=== PATIENT | female | born 1995 | race Caucasian/White ===

== ENCOUNTER → 2019-03-21 | Outpatient (CLI) | payer OTHER ==
[~2019-03-21] MED LIST: ACYC400T PO; AMOX250C PO; AZIT-21 PO; CEFP500T4 PO; CLIN300C3 PO; DOXY-13 PO; ESCT10T PO; FRS325T PO; HYDR-3714 PO; HYDR-707 PO; IBP800T PO; IBUP-1773 PO; LITH600C PO; LORA1TAB PO; METH4TAB PO; NITR100C3 PO; ONDA-42 SL; PRD20T PO; PREN-115 PO; PREN1TAB71 PO; PRM25T PO; SULF-222 PO; SULF1TAB38 PO; TAPE50TA PO; TRZ100T PO; VIVANSE
--- NOTE | 2019-03-21 16:55 | Diagnostic Imaging Report ---
INDICATION: Left breast lump. Findings: Sonographic interrogation of the area of lump in the left breast was performed. This correlates with the 4 o'clock location.There appears to be a fibrous ridge at this location. No discrete mass is seen. No fluid collection is seen. IMPRESSION: BI-RADS category 1. No sonographic abnormality is identified. Dictated by: Dictated on workstation # [id number]
--- NOTE | 2019-03-21 20:39 | Diagnostic Imaging Report ---
INDICATION: Palpable lump in the lateral left breast. COMPARISON: No prior mammograms are available for comparison. EXAMINATION: Unilateral left 2D and 3D diagnostic mammography was performed with CAD. The current study was also evaluated with a Computer Aided Detection (CAD) system. FINDINGS: Scattered fibroglandular densities are identified. No mass or malignant appearing microcalcifications are seen. Left axilla is unremarkable. IMPRESSION: BI-RADS category zero. No suspicious mammographic features are identified. Even so, sonographic interrogation of the area of palpable abnormality is recommended and will be performed today. ACR BI-RADS Category 0: Incomplete. (Needs additional imaging evaluation). Result letter will be mailed to the patient. Note: At least 10% of breast cancer is not imaged by mammography. Dictated by: Dictated on workstation # [id number]
== END ==
LOC: RAD 13:53
PROVIDERS: ATTEND Nurse Practitioner Family
DX: N63.23 Unspecified lump in the left breast, lower outer quadrant (principal)
CPT/HCPCS: 76642

== ENCOUNTER 2020-03-23 13:02 | Emergency (ER) | payer MEDICAID, OTHER ==
[~2020-03-23] VITALS: Ht 155 cm; Wt 100.0 kg
[2020-03-23 13:02] VITALS: BP 108/66
--- NOTE | 2020-03-23 13:30 | NUR ---
Pt to nurses station stating, "I have to get to Trinh Martell, its my kid."
--- NOTE | 2020-03-23 13:34 | ED General ---
General Stated Complaint: COVID SYMPTOMS History of Present Illness Date Seen by Provider: Mar 23, 2020 Time Seen by Provider: 13:10 Initial Comments 24-year-old female presents for multitude of chronic health concerns. Denies suicidal or homicidal thoughts. She does have a history of schizophrenia. She was to see her mental health provider yesterday but didn't feel up to it. She is trying to establish care with a primary care provider in [place]. She reports 2 year history of intermittent nausea, feeling "sick internally" but nonspecific complaints. Denies SOA, Chest Pain, Headache or abdominal pain. She occasionally has leg pain, denies today. Her main complaint is fatigue, circles under eyes, no appetite but then binge eats, lack of motivation and concern that she is "terminally ill and hair got really thin 2 years ago" Timing/Duration: Changing Over Time Associated Systoms: Malaise Allergies and Home Medications Allergies Coded Allergies: Penicillins (Unverified Allergy, Unknown, 09/11/13) ciprofloxacin (Unverified Allergy, Unknown, 07/18/14) ciprofloxacin HCl (Unverified Allergy, Unknown, 07/18/14) Home Medications Acyclovir 400 Mg Tablet, 400 MG PO BID Prescribed by: OLIVIA STAFFORD on 05/05/162222 Acyclovir 400 Mg Tablet, 800 MG PO BID Prescribed by: OLIVIA STAFFORD on 05/05/162222 Nitrofurantoin/Nitrofuran Mac 100 Mg Capsule, 100 MG PO BID Prescribed by: MARCUS FARFAN on 07/18/142220 Vit/Fe Fumarate/Fa 1 Each Tablet, 1 EACH PO DAILY, (Reported) Patient Home Medication List Home Medication List Reviewed: Yes Review of Systems Review of Systems Constitutional: no symptoms reported, see HPI Psychiatric/Neurological: See HPI, Emotional Problems All Other Systems Reviewed Negative Unless Noted: Yes Past Mxmaaqf-Tdgwmq-Mdinxo Hx Past Med/Social Hx: Reviewed Nursing Past Med/Soc Hx Patient Social History Type Used: Cigarettes Recent Hopitalizations: No Immunizations Up To Date Tetanus Booster (TDap): Unknown Seasonal Allergies Seasonal Allergies: No Past Medical History Appendectomy, Section, Gallbladder Reproductive Disorders: No Gastroesophageal Reflux, Hiatal Hernia Anxiety, Depression Adverse Reaction/Blood Tranf: No Family Medical History History of drug abuse 03 MOTHER No Pertinent Family Hx Physical Exam Vital Signs Capillary Refill : Height, Weight, BMI Height: 5'1" Weight: 150lbs. oz. 68.031895gf; 24.56 BMI Method:Stated General Appearance: No Apparent Distress, WD/WN; No Anxious Eyes: Bilateral Eye Normal Inspection, Bilateral Eye PERRL, Bilateral Eye EOMI HEENT: PERRL/EOMI, TMs Normal, Normal ENT Inspection, Pharynx Normal Neck: Full Range of Motion, Normal Inspection, Non Tender, Supple Respiratory: Chest Non Tender, Lungs Clear, Normal Breath Sounds Cardiovascular: Regular Rate, Rhythm, No Edema, No Murmur, Normal Peripheral Pulses Gastrointestinal: Normal Bowel Sounds, Non Tender, Soft Back: Normal Inspection, No CVA Tenderness, No Vertebral Tenderness Extremity: Normal Capillary Refill, Normal Inspection, Normal Range of Motion Neurologic/Psychiatric: Alert, Oriented x3, No Motor/Sensory Deficits, Normal 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 Based on her complaints at this time it was discussed her best course of action is to establish care with Dr. Lau in [place] as her problems are more chronic in nature. I do believe she has depression, which is affecting her physical health. She denies halluci nations and feels her schizophrenia is well-controlled with medication and seeing her mental health provider. She agreed with this and asked for quick discharge, as she needs to return home because her child was calling her for something urgent. Discharge instructions and return precautions reviewed with the patient. All questions answered. Departure Impression Primary Impression: Depressed Qualified Codes: F32.9 - Major depressive disorder, single episode, unspecified Additional Impression: Schizophrenia Qualified Codes: F20.9 - Schizophrenia, unspecified Disposition: 01 HOME, SELF-CARE Condition: Improved Departure-Patient Inst. Decision time for Depature: 13:20 Referrals: NO,LOCAL PHYSICIAN (PCP/Family) Primary Care Physician Patient Instructions: Depression, Adult (DC) Add. Discharge Instructions: Call [facility] for follow up with [facility]. Schedule appt with Dr. Lau, for medical evaluation. Return to Emergency Dept for new, urgent health care needs. TINY GUPTA Mar 23, 2020 13:34
== END 2020-03-23 13:37 | disposition home or self-care (01) ==
LOC: EDUNIT# 13:02 → ER 13:03
DX: F32.9 Major depressive disorder, single episode, unspecified (principal); F20.9 Schizophrenia, unspecified; Z88.0 Allergy status to penicillin; Z88.1 Allergy status to other antibiotic agents
CPT/HCPCS: 99281

== ENCOUNTER 2022-02-23 13:14 | Emergency (ER) | payer MEDICAID, OTHER ==
[~2022-02-23] VITALS: Ht 154 cm; Wt 76.6 kg
[~2022-02-23 13:14] MED LIST changes: -ACYC400T PO; +ACYC400T21 PO
[2022-02-23 13:37] VITALS: BP 131/101
[2022-02-23] MEDS ORDERED: RISP1TAB94 PO (13:43)
--- NOTE | 2022-02-23 13:44 | ED Psychosocial ---
General Chief Complaint: General Problems/Pain Stated Complaint: AUDITORY HALLUCINATIONS Source: patient Exam Limitations: no limitations History of Present Illness Date Seen by Provider: Feb 23, 2022 Time Seen by Provider: 13:19 Initial Comments 26-year-old female with past medical history of schizophrenia coming in due to auditory hallucinations. They are gone for many years, she has been out of her meds for roughly 3 weeks. She called her PCP to get a refill, and they wanted her to be seen. She was supposed to be seen yesterday, but she was unable to get a ride. She is typically on risperidone and Ativan as needed. She is had neither of these she says once again for 3 weeks. Denies any current hallucin ations, no thoughts to hurt herself or hurt anyone else. She is otherwise denying any other physical complaints Allergies and Home Medications Allergies Coded Allergies: Penicillins (Unverified Allergy, Unknown, 09/11/13) ciprofloxacin (Unverified Allergy, Unknown, 07/18/14) ciprofloxacin HCl (Unverified Allergy, Unknown, 07/18/14) Patient Home Medication List Home Medication List Reviewed: Yes Acyclovir (Acyclovir) 400 Mg Tablet, 400 MG PO BID Prescribed by: OLIVIA STAFFORD on 05/05/162222 Acyclovir (Acyclovir) 400 Mg Tablet, 800 MG PO BID Prescribed by: OLIVIA STAFFORD on 05/05/162222 Nitrofurantoin/Nitrofuran Mac (Macrobid Capsule) 100 Mg Capsule, 100 MG PO BID Prescribed by: MARCUS FARFAN on 07/18/142220 Vit/Fe Fumarate/Fa ( Vitamin Tablet) 1 Each Tablet, 1 EACH PO DAILY, (Reported) Entered as Reported by: MARCUS FARFAN on 07/18/142219 Review of Systems Constitutional: No fever EENTM: No blurred vision Respiratory: no symptoms reported Cardiovascular: no symptoms reported Gastrointestinal: no symptoms reported Genitourinary: no symptoms reported Musculoskeletal: no symptoms reported Skin: no symptoms reported Psychiatric/Neurological: Anxiety; Denies Headache, Denies Seizure All Other Systems Reviewed Negative Unless Noted: Yes Past Owskayf-Lmpxdo-Fqocqw Hx Patient Social History Tobacco Use?: Yes Tobacco type used: Cigarettes Use of E-Cig and/or Vaping dev: No Substance use?: Yes Substance type: Methamphetamine Alcohol Use?: Yes Immunizations Up To Date Tetanus Booster (TDap): Unknown Seasonal Allergies Seasonal Allergies: No Past Medical History Surgeries: Yes Appendectomy, Section, Gallbladder Respiratory: No Cardiac: No Neurological: No Reproductive Disorders: No Gastrointestinal: Yes Gastroesophageal Reflux, Hiatal Hernia Musculoskeletal: No Endocrine: No Cancer: No Psychosocial: Yes Anxiety, Depression Integumentary: No Blood Disorders: No Adverse Reaction/Blood Tranf: No Family Medical History History of drug abuse 03 MOTHER No Pertinent Family Hx Physical Exam Capillary Refill : Height, Weight, BMI Height: 5'1" Weight: 150lbs. oz. 68.204619ll; 41.00 BMI Method:Stated General Appearance: WD/WN, no apparent distress HEENT: PERRL/EOMI, normal ENT inspection, pharynx normal Neck: non-tender, full range of motion, supple, normal inspection Respiratory: chest non-tender, lungs clear, normal breath sounds, no respiratory distress, no accessory muscle use Cardiovascular: regular rate, rhythm, no edema, no murmur Gastrointestinal: normal bowel sounds, non tender, soft; No distended, No guarding, No rebound Extremities: normal range of motion, non-tender, normal inspection, no pedal edema, no calf tenderness, normal capillary refill Neurologic/Psychiatric: no motor/sensory deficits, alert, other (flat, no current hallucinations, no thoughts of SI/HI) Skin: normal color, warm/dry Lymphatic: no adenopathy Progress/Results/Core Measures Progress Progress Note : Progress Note 26-year-old female with above history coming in wanting refill for her psych meds. ABCs were intact and vitals were stable on presentation. Physical exam reassuring with no focal abnormalities. She says the hallucinations often happen later on in the day, but she is never having any thoughts to hurt herself or hurt anyone else. I discussed that I would write a refill for the risperidone as a bridge to get her to her regular appointment, but it would not be for very many days. Said I would not write for controlled substances such as Ativan, and she would need to follow-up for that. She has not had a dose in over 3 weeks and she is not at risk for withdrawal. I believe she is stable for discharge with outpatient follow-up. She was sent home with strict return precautions Departure Impression Primary Impression: Schizophrenia Qualified Codes: F20.3 - Undifferentiated schizophrenia Disposition: 01 HOME, SELF-CARE Condition: Stable Departure-Patient Inst. Decision time for Depature: 13:42 Referrals: ROBYN DANIEL MD (PCP) Primary Care Physician Patient Instructions: Schizophrenia (DC) Add. Discharge Instructions: The medicines are not for a long prescription, and you will need to follow-up with your regular doctor to get a regular prescription. Scripts Risperidone (Risperdal) 1 Mg Tablet 1 MG PO BID for 30 Days, #60 TAB Prov: ALLIE GRANDE MD 02/23/22 Work/School Note: Work Release Form Date Seen in the Emergency Department: Feb 23, 2022 Return to Work: Feb 24, 2022 Restrictions: No Restrictions ALLIE GRANDE MD Feb 23, 2022 13:43
== END 2022-02-23 13:50 | disposition home or self-care (01) ==
LOC: EDUNIT# 13:14 → ER FS 13:19
DX: F20.9 Schizophrenia, unspecified (principal); F17.210 Nicotine dependence, cigarettes, uncomplicated; Z79.899 Other long term (current) drug therapy
CPT/HCPCS: 99281

== ENCOUNTER 2022-03-21 11:31 | Emergency (ER) | payer SELFPAY ==
[~2022-03-21] VITALS: Ht 154 cm; Wt 74.0 kg
[~2022-03-21 11:31] MED LIST changes: +RISP1TAB94 PO
[2022-03-21 12:00] VITALS: BP 111/70
[2022-03-21] MEDS ORDERED: ACHD5005 PO ×2 (12:10→12:17)
--- NOTE | 2022-03-21 12:11 | ED EENT ---
History of Present Illness General Chief Complaint: Dental Problems/Pain Stated Complaint: ABCESS TOOTH Source: patient Exam Limitations: no limitations History of Present Illness Date Seen by Provider: Mar 21, 2022 Time Seen by Provider: 12:07 Initial Comments Patient is a 26-year-old female who presents ED with right upper dental pain. Dental pain over the past 4 days. She states she had intermittent pain for 2 weeks prior. Pain became worse went to clinic at [facility] and was prescribed clindamycin yesterday. Has been taken Tylenol and ibuprofen without much improvement the pain. She scheduled follow-up with dentist on . Denies any facial swelling, redness, fever, chills, headache, dizziness, nausea vomiting. She denies of any trauma. History of similar pain in the past Allergies and Home Medications Allergies Coded Allergies: Penicillins (Unverified Allergy, Unknown, 09/11/13) ciprofloxacin (Unverified Allergy, Unknown, 07/18/14) ciprofloxacin HCl (Unverified Allergy, Unknown, 07/18/14) Patient Home Medication List Home Medication List Reviewed: Yes Acyclovir (Acyclovir) 400 Mg Tablet, 400 MG PO BID Prescribed by: OLIVIA STAFFORD on 05/05/162222 Acyclovir (Acyclovir) 400 Mg Tablet, 800 MG PO BID Prescribed by: OLIVIA STAFFORD on 05/05/162222 Hydrocodone/Acetaminophen (Hydrocodone-Acetamin 5-325 mg) 5 Mg-325 Mg Tablet, 1 TAB PO Q4H PRN for PAIN-MODERATE (5-7) Prescribed by: OMID FLORES on 03/21/22 1210 Nitrofurantoin/Nitrofuran Mac (Macrobid Capsule) 100 Mg Capsule, 100 MG PO BID Prescribed by: MARCUS FARFAN on 07/18/14 222 Vit/Fe Fumarate/Fa ( Vitamin Tablet) 1 Each Tablet, 1 EACH PO DAILY, (Reported) Entered as Reported by: MARCUS FARFAN on 07/18/142219 Risperidone (Risperdal) 1 Mg Tablet, 1 MG PO BID Prescribed by: ALLIE GRANDE on 02/23/22 1343 Review of Systems Review of Systems Constitutional: No chills, No diaphoresis, No malaise, No weakness Eyes: Denies Blurred Vision, Denies Drainage Ears: Denies Dizziness, Denies Pain Nose: denies no symptoms reported, denies congestion, denies epistaxis Mouth: denies clots, denies loose teeth; pain; denies swelling, denies bloody discharge Throat: denies swelling, denies discharge Respiratory: No cough, No dyspnea on exertion Cardiovascular: No chest pain Gastrointestinal: No abdominal pain, No diarrhea, No nausea, No vomiting Musculoskeletal: No back pain, No joint pain, No joint swelling, No muscle pain, No muscle stiffness All Other Systems Reviewed Negative Unless Noted: Yes Past Uxloyjq-Csapru-Efqbjl Hx Immunizations Up To Date Tetanus Booster (TDap): Unknown Seasonal Allergies Seasonal Allergies: No Past Medical History Surgeries: Yes Appendectomy, Section, Gallbladder Respiratory: No Cardiac: No Neurological: No Reproductive Disorders: No Gastrointestinal: Yes Gastroesophageal Reflux, Hiatal Hernia Musculoskeletal: No Endocrine: No Cancer: No Psychosocial: Yes Anxiety, Depression Integumentary: No Blood Disorders: No Adverse Reaction/Blood Tranf: No Family Medical History History of drug abuse 03 MOTHER No Pertinent Family Hx Physical Exam Vital Signs Vital Signs - First Documented 03/21/22 12:00 Temp 36.3 Pulse 88 Resp 16 B/P (MAP) 111/70 (84) Pulse Ox 97 O2 Delivery Room Air Height, Weight, BMI Height: 5'1" Weight: 150lbs. oz. 68.816658wf; 32.00 BMI Method:Stated General Appearance: WD/WN, no apparent distress Eyes: bilateral eye normal inspection, bilateral eye PERRL, bilateral eye EOMI Ears: bilateral ear auricle normal, bilateral ear canal normal, bilateral ear TM normal Nose: normal inspection, active bleeding Mouth/Throat: other (Decay noted of the left first molar. 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 Gum swelling erythema. Refused dental block. Started clindamycin yesterday and states it has helped some. She is allergic to penicillins. Recommend continue clindamycin. No facial swelling redness. Vital signs stable. Patient Was given a few days worth of pain medi cation. Continue with ibuprofen at home. She is scheduled follow-up with dentist on . Return precaution were discussed with patient. Impression Primary Impression: Pain, dental Disposition: HOME, SELF-CARE Condition: Stable Departure-Patient Inst. Decision time for Depature: 12:09 Referrals: SELF,ROBYN SAHU (PCP/Family) Primary Care Physician Patient Instructions: Dental Pain Scripts Hydrocodone/Acetaminophen (Hydrocodone-Acetamin 5-325 mg) 5 Mg-325 Mg Tablet 1 TAB PO Q4H PRN for PAIN-MODERATE (5-7), #4 TAB Prov: ALLIE VALENTIN 03/21/22 ALLIE VALENTIN Mar 21, 2022 12:11
== END 2022-03-21 12:15 | disposition home or self-care (01) ==
LOC: EDUNIT# 11:31 → ER 11:33
DX: K08.89 Other specified disorders of teeth and supporting structures (principal)
CPT/HCPCS: 99282

== ENCOUNTER 2022-05-27 12:45 | Emergency (ER) | payer SELFPAY ==
[~2022-05-27] VITALS: Ht 154 cm; Wt 77.0 kg
[~2022-05-27 12:45] MED LIST changes: +ACHD5005 PO
[2022-05-27 12:55] VITALS: BP 119/84
--- NOTE | 2022-05-27 13:04 | ED EENT ---
History of Present Illness General Chief Complaint: Dental Problems/Pain Stated Complaint: DENTAL PAIN History of Present Illness Date Seen by Provider: May 27, 2022 Time Seen by Provider: 13:04 Initial Comments Patient reports that she has left upper dental pain for the past several days. Has been taking over the counter medications at home with mild improvement of symptoms. Has an appointment scheduled next week with dentist. Has been on Clindamycin for the past 3-4 days. Denies fever or drainage from the area. Denies difficulty swallowing or chewing. Timing/Duration: gradual Severity: moderate Location: dental Prearrival Treatment: over the counter meds, prescription meds Associated Symptoms: facial pain/swelling; No poor fluid intake, No poor solids intake; tooth pain Allergies and Home Medications Allergies Coded Allergies: Fish Containing Products (Verified Allergy, Unknown, 05/27/22) Penicillins (Unverified Allergy, Unknown, 09/11/13) ciprofloxacin (Unverified Allergy, Unknown, 07/18/14) ciprofloxacin HCl (Unverified Allergy, Unknown, 07/18/14) Patient Home Medication List Home Medication List Reviewed: Yes Acyclovir (Acyclovir) 400 Mg Tablet, 400 MG PO BID Prescribed by: OLIVIA STAFFORD on 05/05/162222 Acyclovir (Acyclovir) 400 Mg Tablet, 800 MG PO BID Prescribed by: OLIVIA STAFFORD on 05/05/162222 Hydrocodone/Acetaminophen (Hydrocodone-Acetamin 5-325 mg) 5 Mg-325 Mg Tablet, 1 TAB PO Q4H PRN for PAIN-MODERATE (5-7) Prescribed by: OMID FLORES on 03/21/22 1218 Nitrofurantoin/Nitrofuran Mac (Macrobid Capsule) 100 Mg Capsule, 100 MG PO BID Prescribed by: MARCUS FARFAN on 07/18/14 222 Vit/Fe Fumarate/Fa ( Vitamin Tablet) 1 Each Tablet, 1 EACH PO DAILY, (Reported) Entered as Reported by: MARCUS FARFAN on 07/18/142219 Risperidone (Risperdal) 1 Mg Tablet, 1 MG PO BID Prescribed by: ALLIE GRANDE on 02/23/22 1343 Review of Systems Review of Systems Constitutional: No chills, No dizziness, No fever Eyes: Denies Blurred Vision, Denies Pain Ears: Denies Pain Mouth: pain, swelling Throat: denies pain, denies swelling, denies neck stiffness, denies hoarse, denies muffled Respiratory: No cough, No short of breath Cardiovascular: No chest pain, No palpitations Gastrointestinal: No diarrhea, No nausea, No vomiting Skin: No pruritus, No rash Neurological: Denies Headache, Denies Numbness, Denies Tingling All Other Systems Reviewed Negative Unless Noted: Yes Past Ztuwktc-Mrqvwo-Lzcpqk Hx Immunizations Up To Date Tetanus Booster (TDap): Unknown First/Initial COVID19 Vaccinat: UNLNOWN DATE Seasonal Allergies Seasonal Allergies: No Past Medical History Surgeries: Yes Appendectomy, Section, Gallbladder Respiratory: No Cardiac: No Neurological: No Reproductive Disorders: No Gastrointestinal: Yes Gastroesophageal Reflux, Hiatal Hernia Musculoskeletal: No Endocrine: No Cancer: No Psychosocial: Yes Anxiety, Depression Integumentary: No Blood Disorders: No Adverse Reaction/Blood Tranf: No Family Medical History Reviewed Nursing Family Hx History of drug abuse 03 MOTHER No Pertinent Family Hx Physical Exam Vital Signs Vital Signs - First Documented 05/27/22 12:55 Temp 36.3 Pulse 92 Resp 16 B/P (MAP) 119/84 (96) Pulse Ox 94 O2 Delivery Room Air Height, Weight, BMI Height: 5'1" Weight: 150lbs. oz. 68.219328de; 31.00 BMI Method:Stated General Appearance: WD/WN, no apparent distress Eyes: bilateral eye normal inspection Mouth/Throat: pharynx normal, dental tenderness (left upper molars); No mandibular swelling; maxillary swelling (mild left sided maxillary facial swelling); No pharynx swelling, No pharynx tenderness, No tongue swollen, No trismus, No uvula swelling, No voice changes Neck: non-tender, full range of motion, supple, normal inspection Cardiovascular: regular rate, rhythm Respiratory: chest non-tender, lungs clear, normal breath sounds, no respira tory distress, no accessory muscle use Gastrointestinal: normal bowel sounds, non tender Neurologic/Psychiatric: alert, normal mood/affect, oriented x 3 Skin: normal color, warm/dry Progress/Results/Core Measures Results/Orders My Orders Orders - DAVINA RAMOS APRN Ketorolac Injection (Toradol Injection) (05/27/22 13:15) Departure Impression Primary Impression: Dental abscess Disposition: 01 HOME, SELF-CARE Condition: Stable Departure-Patient Inst. Decision time for Depature: 13:20 Referrals: SELF,ROBYN SAHU (PCP/Family) Primary Care Physician Patient Instructions: Dental Pain (DC) Add. Discharge Instructions: 1. Finish antibiotics as previously prescribed. 2. Follow up with PCP as needed. 3. Alternate Tylenol/Ibuprofen as needed for pain. 4. Follow up with Dentist as already planned next week. 5. Return here if worse or concerns. All discharge instructions reviewed with patient and/or family. Voiced understanding. DAVINA RAMOS APRN May 27, 2022 13:04
[2022-05-27] MEDS ORDERED: KETOROLAC 60 MG/2 ML VIAL IM ONE (13:15)
== END 2022-05-27 13:22 | disposition home or self-care (01) ==
LOC: EDUNIT# 12:45 → ER 12:47
DX: K04.7 Periapical abscess without sinus (principal)
CPT/HCPCS: 99284

== ENCOUNTER 2022-08-10 14:56 | Emergency (ER) | payer SELFPAY ==
[~2022-08-10] VITALS: Ht 157 cm; Wt 72.5 kg
--- NOTE | 2022-08-10 15:09 | ED Psychosocial ---
General Chief Complaint: Psych/Social Disorder Stated Complaint: PSYCH Source: EMS, other (Mental Health) Exam Limitations: clinical condition (ZORAIDA COREY MD) History of Present Illness Date Seen by Provider: Aug 10, 2022 Time Seen by Provider: 15:00 Initial Comments Patient is a 26-year-old female who presents to the emergency room by EMS with chief complaint of exacerbation of's psychiatric illness. Mental health screener is with the patient. She does get her care through [facility]. She is on an twice psychotic medications. Mental health screen her 48 hours ago, at that time she did get a shot of her Depo Invega. They did not believe that she warranted inpatient hospitalization on Sunday but apparently over the last 48 hours she has decompensated. She was at a local fast food restaurant "acting psychotic" she was rolling around in dog feces, screaming, hitting herself, punching herself in the left jaw, pulling at her own hair. She does have a history of methamphetamine abuse. She has recently been in [place] [facility]. She was clean reportedly during that time. Due to her acutely psychotic, irrational and aggressive behavior EMS called for medical control for IM ketamine. She was given 250 mg of IM ketamine prior to arrival. She was awake, not really answering questions, obviously under the influence of the ketamine, calm and sedate. Stable vital signs. At the time of presentation not really able to participate in the interview. I spoke with the mental health screener Jessenia and she stated that she was going to place her on an involuntary hold. She is hopeful that once the patient recovers from the ketamine she may want to go voluntarily. No reported suicidal or homicidal ideation to the screener earlier in the week. Screener is not aware of any recent illnesses. She is quite familiar with her. Patient is unable to participate in the HPI, past medical family social history and review of systems due to her current medical state on ketamine. Timing/Duration: week, getting worse Severity: severe Associated Symptoms: other (psychosis) (ZORAIDA COREY MD) Allergies and Home Medications Allergies Coded Allergies: Fish Containing Products (Verified Allergy, Unknown, 05/27/22) Penicillins (Unverified Allergy, Unknown, 09/11/13) ciprofloxacin (Unverified Allergy, Unknown, 07/18/14) ciprofloxacin HCl (Unverified Allergy, Unknown, 07/18/14) Patient Home Medication List Home Medication List Reviewed: Yes (ZORAIDA COREY MD) Acyclovir (Acyclovir) 400 Mg Tablet, 400 MG PO BID Prescribed by: OLIVIA STAFFORD on 05/05/162222 Acyclovir (Acyclovir) 400 Mg Tablet, 800 MG PO BID Prescribed by: OLIVIA STAFFORD on 05/05/162222 Hydrocodone/Acetaminophen (Hydrocodone-Acetamin 5-325 mg) 5 Mg-325 Mg Tablet, 1 TAB PO Q4H PRN for PAIN-MODERATE (5-7) Prescribed by: OMID FLORES on 03/21/22 1218 Nitrofurantoin/Nitrofuran Mac (Macrobid Capsule) 100 Mg Capsule, 100 MG PO BID Prescribed by: MARCUS FARFAN on 07/18/142220 Vit/Fe Fumarate/Fa ( Vitamin Tablet) 1 Each Tablet, 1 EACH PO DAILY, (Reported) Entered as Reported by: MARCUS FARFAN on 07/18/142219 Risperidone (Risperdal) 1 Mg Tablet, 1 MG PO BID Prescribed by: ALLIE GRANDE on 02/23/22 1343 Review of Systems Constitutional: see HPI unable to get an HPI or ROS from patient due to sedated state with Ketamine [employer]PER[employer] (ZORAIDA COREY MD) Past Bkinrrc-Lwvbed-Ivmwzn Hx Immunizations Up To Date Tetanus Booster (TDap): Unknown First/Initial COVID19 Vaccinat: UNLNOWN DATE (ZORAIDA COREY MD) Seasonal Allergies Seasonal Allergies: No (ZORAIDA COREY MD) Past Medical History Surgeries: Yes Appendectomy, Section, Gallbladder Respiratory: No Cardiac: No Neurological: No Reproductive Disorders: No Gastrointestinal: Yes Gastroesophageal Reflux, Hiatal Hernia Musculoskeletal: No Endocrine: No Cancer: No Psychosocial: Yes Anxiety, Depression Integumentary: No Blood Disorders: No Adverse Reaction/Blood Tranf: No (ZORAIDA COREY MD) Family Medical History History of drug abuse 03 MOTHER No Pertinent Family Hx (ZORAIDA COREY MD) Physical Exam Vital Signs - First Documented 08/10/22 08/10/22 15:02 20:21 Temp 35.8 Pulse 94 Resp 16 B/P (MAP) 131/64 (86) Pulse Ox 95 O2 Delivery Room Air (ALANA BRINK MD) Capillary Refill : (ZORAIDA COREY MD) Height, Weight, BMI Height: 5'1" Weight: 150lbs. oz. [id number]; 32.00 BMI Method:Stated General Appearance: WD/WN, no apparent distress HEENT: other (rotatory nustagmus) Neck: normal inspection Respiratory: lungs clear, normal breath sounds, no respiratory distress, no accessory muscle use Cardiovascular: regular rate, rhythm Gastrointestinal: soft Extremities: normal range of motion, normal inspection Neurologic/Psychiatric: alert Thoughts/Hallucinations: other (Patient currently under the influence of Ketamine; no complaints; not really following commands; calm and cooperative) Skin: normal color, warm/dry, other (filthy skin and clothing - covered in dog feces) (ZORAIDA COREY MD) Progress/Results/Core Measures Results/Orders Lab Results Laboratory Tests Test 08/10/22 15:06 08/10/22 15:57 08/10/22 17:21 Range/Units White Blood Count 9.1 4.3-11.0 10^3/uL Red Blood Count 4.44 3.80-5.11 10^6/uL Hemoglobin 13.2 11.5-16.0 g/dL Hematocrit 39 35-52 % Mean Corpuscular Volume 88 80-99 fL Mean Corpuscular Hemoglobin 30 25-34 pg Mean Corpuscular Hemoglobin Concent 34 32-36 g/dL Red Cell Distribution Width 13.2 10.0-14.5 % Platelet Count 275 130-400 10^3/uL Mean Platelet Volume 10.1 9.0-12.2 fL Immature Granulocyte % (Auto) 0 % Neutrophils (%) (Auto) 67 42-75 % Lymphocytes (%) (Auto) 27 12-44 % Monocytes (%) (Auto) 6 0-12 % Eosinophils (%) (Auto) 0 0-10 % Basophils (%) (Auto) 0 0-10 % Neutrophils # (Auto) 6.0 1.8-7.8 10^3/uL Lymphocytes # (Auto) 2.4 1.0-4.0 10^3/uL Monocytes # (Auto) 0.6 0.0-1.0 10^3/uL Eosinophils # (Auto) 0.0 0.0-0.3 10^3/uL Basophils # (Auto) 0.0 0.0-0.1 10^3/uL Immature Granulocyte # (Auto) 0.0 0.0-0.1 10^3/uL Sodium Level 138 135-145 MMOL/L Potassium Level 3.2 L 3.6-5.0 MMOL/L Chloride Level 105 98-107 MMOL/L Carbon Dioxide Level 22 21-32 MMOL/L Anion Gap 11 5-14 MMOL/L Blood Urea Nitrogen 14 7-18 MG/DL Creatinine 0.79 0.60-1.30 MG/DL Estimat Glomerular Filtration Rate 105 BUN/Creatinine Ratio 18 Glucose Level 83 70-105 MG/DL Calcium Level 9.8 8.5-10.1 MG/DL Corrected Calcium 9.6 8.5-10.1 MG/DL Total Bilirubin 1.1 H 0.1-1.0 MG/DL Aspartate Amino Transf (AST/SGOT) 28 5-34 U/L Alanine Aminotransferase (ALT/SGPT) 54 0-55 U/L Alkaline Phosphatase 76 40-136 U/L Total Protein 7.5 6.4-8.2 GM/DL Albumin 4.3 3.2-4.5 GM/DL Serum Test, Qualitative NEGATIVE NEGATIVE Salicylates Level < 5.0 L 5.0-20.0 MG/DL Acetaminophen Level < 10 L 10-30 UG/ML Serum Alcohol < 10 <10 MG/DL Influenza Type A (RT-PCR) Not Detected Not Detecte Influenza Type B (RT-PCR) Not Detected Not Detecte SARS-CoV-2 RNA (RT-PCR) Not Detected Not Detecte Urine Opiates Screen NEGATIVE NEGATIVE Urine Oxycodone Screen NEGATIVE NEGATIVE Urine Methadone Screen NEGATIVE NEGATIVE Urine Propoxyphene Screen NEGATIVE NEGATIVE Urine Barbiturates Screen NEGATIVE NEGATIVE Ur Tricyclic Antidepressants Screen NEGATIVE NEGATIVE Urine Phencyclidine Screen NEGATIVE NEGATIVE Urine Amphetamines Screen POSITIVE H NEGATIVE Urine Methamphetamines Screen POSITIVE H NEGATIVE Urine Benzodiazepines Screen POSITIVE H NEGATIVE Urine Cocaine Screen NEGATIVE NEGATIVE Urine Cannabinoids Screen NEGATIVE NEGATIVE (ALANA BRINK MD) My Orders Orders - ALANA BRINK MD Potassium Chloride (Tablet) (Klor Con Ta (08/10/22 18:15) General/Regular (08/10/22 Dinner) Olanzapine Orally Dissolve Tab (Zyprexa (08/10/22 21:15) (ALANA BRINK MD) Medications Given in ED Current Medications Medications Dose Ordered Sig/Rohan Route Start Time Stop Time Status Last Admin Dose Admin Potassium Chloride 20 meq ONCE ONCE PO 08/10/22 18:15 08/10/22 18:24 DC 08/10/22 18:43 20 MEQ (ALANA BRINK MD) Vital Signs/I&O 08/10/22 08/10/22 15:02 20:21 Temp 35.8 Pulse 94 90 Resp 16 16 B/P (MAP) 131/64 (86) 114/61 (78) Pulse Ox 95 96 O2 Delivery Room Air (ALANA BRINK MD) Progress Progress Note #1: Time: 15:56 Progress Note Resting comfortably; Progress Note #2: Time: 14:55 Progress Note 08/11/22 1456 Patient had paperwork completed for involuntary hold by [facility]. Jessenia Livnigston came back out today to reassess the patient and states that she is "much clearer" than she has been. She is communicating well with Jessenia and and does not seem to be a threat to herself or others. Jessenia is going to talk to Ruthy's family and see if they can keep an eye on her and help to keep her safe. after talking to them she will decide what course of action to take. 1508 Jessenia Livingston came back out to see her and possibly start the paperwork for an out patient "safety plan". Ruthy is now talking to herself and acting bizarely. Won't participate in the interview or talk to Jessenia. Hallucinating and responding to internal stimuli. She is laying in the bed with her head covered (whereas she was just up 30m to 45 min ago talking "normally" and asking for a sprite). Progress Note #3: Time: 15:55 Progress Note HOld will stay in place. Patient is going to [facility] - accepted by Dr Dyer. Nursing report given. Patient to be transported by [facility] (ZORAIDA COREY MD) Progress Note #1: Time: 21:32 Progress Note I assumed care of this patient from Dr. Troy at shift change. She had been resting quietly and compliant until recently. She had an outburst of belligerent language and some nonsensical speech. Zyprexa was ordered. We are awaiting placement from [facility]. Progress Note #2: Time: 22:51 Progress Note Patient refused Zyprexa. She did calm down and has not had further outbursts. She is currently resting quietly and cooperatively. (ALANA BRINK MD) Initial ECG Impression Date: Aug 10, 2022 Initial ECG Impression Time: 15:57 Initial ECG Rate: 90 Initial ECG Rhythm: Normal Sinus Initial ECG Intervals: Normal Initial ECG Impression: Normal Comment Normal sinus rhythm with no ST elevation or depression. No abnormal intervals or axis deviation. (ALANA BRINK MD) Departure Impression Primary Impression: Psychosis Qualified Codes: F29 - Unspecified psychosis not due to a substance or known physiological condition Additional Impression: Methamphetamine abuse Disposition: 65 XFER TO PSYCH HOSP/UNIT Condition: Stable Transfer Transfer Reason: Exceeds level of care Time Spoke to Accepting Phy: 12:45 Transfer Progress Notes acceptance from [facility] obtained by Kerwin Chauhan RN from [facility]; Dr Dyer Transfer Facility: [facility] Method of Transfer: Law Enforcement (ZORAIDA COREY MD) Departure-Patient Inst. Referrals: ROBYN DANIEL MD (PCP/Family) Primary Care Physician Add. Discharge Instructions: ZORAIDA COREY MD Aug 10, 2022 15:09 ALANA BRINK MD Aug 10, 2022 21:34
[2022-08-10 16:13] LABS: BASOPHILS % (AUTO) 0 % (0-10); CHLORIDE 105 MMOL/L (98-107); EOSINOPHILS % (AUTO) 0 % (0-10); HEMATOCRIT 39 % (35-52); HEMOGLOBIN 13.2 g/dL (11.5-16.0); LYMPHOCYTES # (AUTO) 2.4 10^3/uL (1.0-4.0); LYMPHOCYTES % (AUTO) 27 % (12-44); MEAN CORPUSCULAR HEMOGLOBIN 30 pg (25-34); MEAN CORPUSCULAR HGB CONC 34 g/dL (32-36); MEAN CORPUSCULAR VOLUME 88 fL (80-99); MEAN PLATELET VOLUME 10.1 fL (9.0-12.2); MONOCYTES # (AUTO) 0.6 10^3/uL (0.0-1.0); MONOCYTES % (AUTO) 6 % (0-12); NEUTROPHILS % (AUTO) 67 % (42-75); PLATELET COUNT 275 10^3/uL (130-400); POTASSIUM 3.2 MMOL/L (3.6-5.0); SODIUM 138 MMOL/L (135-145); WHITE BLOOD COUNT 9.1 10^3/uL (4.3-11.0)
[2022-08-10 16:14] LABS: ALBUMIN 4.3 GM/DL (3.2-4.5)
[2022-08-10 16:15] LABS: CALCIUM 9.8 MG/DL (8.5-10.1)
[2022-08-10 16:16] LABS: GLUCOSE 83 MG/DL (70-105)
[2022-08-10 16:17] LABS: CARBON DIOXIDE 22 MMOL/L (21-32); TOTAL PROTEIN 7.5 GM/DL (6.4-8.2)
[2022-08-10 16:18] LABS: BILIRUBIN,TOTAL 1.1 MG/DL (0.1-1.0)
[2022-08-10 16:20] LABS: ALKALINE PHOSPHATASE 76 U/L (40-136); CREATININE SERUM 0.79 MG/DL (0.60-1.30); GFR ESTIMATED 105
[2022-08-10 16:22] LABS: BUN/CREATININE RATIO 18
[2022-08-10 16:23] LABS: ALANINE AMINOTRANSFERASE 54 U/L (0-55); SALICYLATE < 5.0 MG/DL (5.0-20.0)
[2022-08-10 16:32] LABS: ACETAMINOPHEN < 10 UG/ML (10-30)
[2022-08-10] MEDS ORDERED: ONDANSETRON 4 MG (ZOFRAN) ORAL DISSOLVE TAB PO STA (17:20)
[2022-08-10 17:41] LABS: AMPHETAMINE SCREEN, URINE POSITIVE (NEGATIVE); BARBITURATE SCREEN URINE NEGATIVE (NEGATIVE); BENZODIAZEPINES SCREEN URINE POSITIVE (NEGATIVE); CANNABINOID SCREEN, URINE NEGATIVE (NEGATIVE); COCAINE SCREEN URINE NEGATIVE (NEGATIVE); METHADONE STAT NEGATIVE (NEGATIVE); OPIATE SCREEN URINE NEGATIVE (NEGATIVE); OXYCODONE STAT NEGATIVE (NEGATIVE); PROPOXYPHENE STAT NEGATIVE (NEGATIVE); TRICYCLIC ANTIDEPRESSANTS SCRE NEGATIVE (NEGATIVE)
[2022-08-10] MEDS ORDERED: KCL 10 MEQ TAB (MICRO K) PO ONE (18:15)
[2022-08-10] MEDS ORDERED: OLANZapine 5 MG ODT (ZyPREXA ZYDIS) SL ONE (21:15)
[2022-08-11 16:15] VITALS: BP 114/59
== END 2022-08-11 16:25 ==
LOC: EDUNIT# 14:56 → ER 14:57
DX: F15.159 Other stimulant abuse with stimulant-induced psychotic disorder, unspecified (principal); Z79.899 Other long term (current) drug therapy; Z20.822 Contact with and (suspected) exposure to COVID-19
CPT/HCPCS: 80053; 80306; 84703; 85025; 87636; 93005; 99283; G0480 ×3; 36415; 80320; 80329

== ENCOUNTER 2022-12-17 14:38 | Emergency (ER) | payer SELFPAY ==
[~2022-12-17] VITALS: Ht 154 cm; Wt 77.1 kg
[2022-12-17] MEDS ORDERED: CLIN-144 PO (15:02)
[2022-12-17] MEDS ORDERED: ACHD5005 PO (15:02)
--- NOTE | 2022-12-17 15:03 | ED EENT ---
History of Present Illness General Chief Complaint: Dental Problems/Pain Stated Complaint: DENTAL PAIN Nursing Triage Note: pt presents to ed via pov from home with complaints of l upper dental pain that radiates into her l cheek starting today. Source: patient Exam Limitations: no limitations History of Present Illness Date Seen by Provider: Dec 17, 2022 Time Seen by Provider: 14:59 Initial Comments Patient is a 27-year-old female presents ED with left upper dental pain. She states she noticed pain around 9:00 this morning. Sharp stabbing pain. She took ibuprofen without much improvement. She states she has a tooth that needs to be pulled. Has had intermittent pain of this tooth in the past. Pain radiating to left ear. Denies any facial swelling or redness. Typically takes ibuprofen with improvement but not today. She denies fever, chills, chest pain, shortness of breath, neck pain, headache, dizziness Allergies and Home Medications Allergies Coded Allergies: Fish Containing Products (Verified Allergy, Unknown, 05/27/22) Penicillins (Unverified Allergy, Unknown, 09/11/13) ciprofloxacin (Unverified Allergy, Unknown, 07/18/14) ciprofloxacin HCl (Unverified Allergy, Unknown, 07/18/14) Patient Home Medication List Home Medication List Reviewed: Yes Acyclovir (Acyclovir) 400 Mg Tablet, 400 MG PO BID Prescribed by: OLIVIA STAFFORD on 05/05/162222 Acyclovir (Acyclovir) 400 Mg Tablet, 800 MG PO BID Prescribed by: OLIVIA STAFFORD on 05/05/162222 Clindamycin HCl (Clindamycin HCl) 300 Mg Capsule, 300 MG PO QID Prescribed by: OMID FLORES on 12/17/22 1502 Hydrocodone/Acetaminophen (Hydrocodone-Acetamin 5-325 mg) 5 Mg-325 Mg Tablet, 1 TAB PO Q4H PRN for PAIN-MODERATE (5-7) Prescribed by: OMID FLORES on 03/21/22 1218 Hydrocodone/Acetaminophen (Hydrocodone-Acetamin 5-325 mg) 5 Mg-325 Mg Tablet, 1 TAB PO Q4H PRN for PAIN-MODERATE (5-7) Prescribed by: OMID FLORES on 12/17/22 1503 Nitrofurantoin/Nitrofuran Mac (Macrobid Capsule) 100 Mg Capsule, 100 MG PO BID Prescribed by: MARCUS FARFAN on 07/18/142220 Vit/Fe Fumarate/Fa ( Vitamin Tablet) 1 Each Tablet, 1 EACH PO DAILY, (Reported) Entered as Reported by: MARCUS FARFAN on 07/18/142219 Risperidone (Risperdal) 1 Mg Tablet, 1 MG PO BID Prescribed by: ALLIE GRANDE on 02/23/22 1343 Review of Systems Review of Systems Constitutional: No chills, No diaphoresis, No malaise, No weakness Eyes: Denies Blurred Vision, Denies Drainage, Denies Pain, Denies Photophobia Ears: Denies Dizziness, Denies Pain Nose: denies clots, denies congestion Mouth: pain, swelling Throat: denies pain, denies swelling Respiratory: No cough, No short of breath Cardiovascular: No chest pain, No edema Gastrointestinal: No abdominal pain, No diarrhea, No nausea, No vomiting Musculoskeletal: No back pain, No joint pain Skin: No change in color, No change in hair/nails Past Najevtb-Szasga-Bcxvki Hx Patient Social History Tobacco Use?: Yes Tobacco type used: Cigarettes Smoking Status: Current Everyday Smoker Substance use?: No Alcohol Use?: No Pt feels they are or have been: No Immunizations Up To Date Tetanus Booster (TDap): Unknown First/Initial COVID19 Vaccinat: UNLNOWN DATE Second COVID19 Vaccination Jacob: UNLNOWN DATE Third COVID19 Vaccination Date: UNLNOWN DATE Seasonal Allergies Seasonal Allergies: No Past Medical History Surgery/Hospitalization HX: PMH: SCHIZOPHRENIA Surgeries: Yes Appendectomy, Section, Gallbladder Respiratory: No Cardiac: No Neurological: No Reproductive Disorders: No Gastrointestinal: Yes Gastroesophageal Reflux, Hiatal Hernia Musculoskeletal: No Endocrine: No Cancer: No Psychosocial: Yes Anxiety, Depression Integumentary: No Blood Disorders: No Adverse Reaction/Blood Tranf: No Family Medical History History of drug abuse 03 MOTHER No Pertinent Family Hx Physical Exam Vital Signs Vital Signs - First Documented 12/17/22 14:53 Temp 35.6 Pulse 88 Resp 98 B/P (MAP) 130/82 (98) Pulse Ox 98 Height, Weight, BMI Height: 5'1" Weight: 150lbs. oz. 68.637011iw; 32.00 BMI Method:Stated General Appearance: WD/WN, no apparent distress Eyes: bilateral eye normal inspection, bilateral eye PERRL, bilateral eye EOMI Ears: bilateral ear auricle normal, bilateral ear canal normal, bilateral ear TM normal Nose: normal inspection Mouth/Throat: other (Left upper molar with decay. Gum swelling and redness. No obvious abscess. Poor fpc throughout.) Cardiovascular: regular rate, rhythm, no edema, no gallop Respiratory: chest non-tender, lungs clear, normal breath sounds, no respiratory distress Gastrointestinal: normal bowel sounds, non tender, soft, no organomegaly Skin: normal color, warm/dry Progress/Results/Core Measures Results/Orders My Orders Orders - ALLIE VALENTIN Hydrocodone/Apap 5/325 Tablet (Lortab 5 (12/17/22 15:15) Medications Given in ED Current Medications Medications Dose Ordered Sig/Rohan Route Start Time Stop Time Status Last Admin Dose Admin Acetaminophen/ Hydrocodone Bitart 1 ea ONCE ONCE PO 12/17/22 15:15 12/17/22 15:16 12/17/22 15:13 1 EA Vital Signs/I&O 12/17/22 14:53 Temp 35.6 Pulse 88 Resp 98 B/P (MAP) 130/82 (98) Pulse Ox 98 Blood Pressure Mean: 98 Departure Communication (PCP) Patient is a 27-year-old female presents ED with left upper dental pain. acute onset around 11:00 this morning. Patient states she has a history of similar pain in the past. Concern for dental abscess versus gingivitis. She did not have any significant facial swelling or redness. Left upper first molar with decay. Gum swelling and erythema. No obvious abscess. Discussed dental block she refused. Was given oral dose of hydrocodone. Discussed my concerns for gingivitis versus potential periapical abscess. No significant facial swelling or redness suggesting facial cellulitis but discussed antibiotics would likely help with her symptoms. Will discharge to clindamycin allergic to penicillins. Dental outpatient follow-up with [facility]. Provided outpatient resources. We will provide a few days worth of pain medication. Continue with ibuprofen daily. Discussed cool compresses to the left side of face. If any worsening pain, swelling or redness to left side of face return back to ED. Impression Primary Impression: Pain, dental Disposition: HOME, SELF-CARE Condition: Stable Departure-Patient Inst. Decision time for Depature: 15:01 Referrals: [facility]/ROBYN PATEL MD (PCP/Family) Primary Care Physician Patient Instructions: Dental Pain Scripts Ondansetron (Ondansetron Odt) 4 Mg Tab.rapdis 4 MG SL Q4H PRN for NAUSEA/VOMITING, #6 TAB Prov: ALLIE VALENTIN 12/17/22 Hydrocodone/Acetaminophen (Hydrocodone-Acetamin 5-325 mg) 5 Mg-325 Mg Tablet 1 TAB PO Q4H PRN for PAIN-MODERATE (5-7), #8 TAB Prov: ALLIE VALENTIN 12/17/22 Clindamycin HCl (Clindamycin HCl) 300 Mg Capsule 300 MG PO QID for 7 Days, #28 CAP Prov: ALLIE VALENTIN 12/17/22 ALLIE VALENTIN Dec 17, 2022 15:03
[2022-12-17] MEDS ORDERED: ONDA4TAB11 SL (15:15)
[2022-12-17] MEDS ORDERED: HYDROcodone/APAP 5 MG/325 MG (LORTAB) TAB PO ONE (15:15)
[2022-12-17 15:18] VITALS: BP 130/82
== END 2022-12-17 15:17 | disposition home or self-care (01) ==
LOC: EDUNIT# 14:38 → ER 14:40
DX: K02.9 Dental caries, unspecified (principal); F17.210 Nicotine dependence, cigarettes, uncomplicated; Z88.0 Allergy status to penicillin; Z28.310 Unvaccinated for COVID-19
CPT/HCPCS: 99283

== ENCOUNTER 2023-02-23 16:10 | Emergency (ER) | payer SELFPAY ==
[~2023-02-23] VITALS: Ht 155 cm; Wt 85.7 kg
[~2023-02-23 16:10] MED LIST changes: +CLIN-144 PO; +ONDA4TAB11 SL
[2023-02-23 16:49] LABS: BILIRUBIN,URINE NEGATIVE (NEGATIVE); CLARITY,URINE CLEAR; COLOR,URINE ORANGE; GLUCOSE, URINE (UA) NEGATIVE (NEGATIVE); KETONES,URINE NEGATIVE (NEGATIVE); LEUKOCYTE ESTERASE ,URINE NEGATIVE (NEGATIVE); NITRITE,URINE NEGATIVE (NEGATIVE); PH,URINE 6.5 (5-9); PROTEIN,URINE TRACE (NEGATIVE)
[2023-02-23 16:52] LABS: BASOPHILS # (AUTO) 0.1 10^3/uL (0.0-0.1); BASOPHILS % (AUTO) 1 % (0-10); EOSINOPHILS # (AUTO) 0.3 10^3/uL (0.0-0.3); EOSINOPHILS % (AUTO) 3 % (0-10); HEMATOCRIT 39 % (35-52); HEMOGLOBIN 13.6 g/dL (11.5-16.0); LYMPHOCYTES # (AUTO) 3.2 10^3/uL (1.0-4.0); LYMPHOCYTES % (AUTO) 33 % (12-44); MEAN CORPUSCULAR HEMOGLOBIN 30 pg (25-34); MEAN CORPUSCULAR HGB CONC 35 g/dL (32-36); MEAN CORPUSCULAR VOLUME 87 fL (80-99); MEAN PLATELET VOLUME 10.4 fL (9.0-12.2); MONOCYTES # (AUTO) 0.7 10^3/uL (0.0-1.0); MONOCYTES % (AUTO) 7 % (0-12); NEUTROPHILS # (AUTO) 5.6 10^3/uL (1.8-7.8); NEUTROPHILS % (AUTO) 56 % (42-75); PLATELET COUNT 290 10^3/uL (130-400); WHITE BLOOD COUNT 9.9 10^3/uL (4.3-11.0)
[2023-02-23 16:56] LABS: HCG,QUALITATIVE URINE NEGATIVE (NEGATIVE)
--- NOTE | 2023-02-23 16:56 | ED General ---
General Chief Complaint: Psych/Social Disorder Stated Complaint: PSYCH EVAL Nursing Triage Note: PT PRESENTS TO ED SEEKING PSYCHIATRIC HELP, ASKS TO GET PLACEMENT TO A PSYCH FACILITY. PT ON MEDS FOR SCHIZOPHRENIA BUT "THEY AREN'T WORKING, IT'S OUT OF CONTROL." PT EXPERIENCING AUDITORY AND VISUAL HALLUCINATIONS. DENIES SI/HI. PT ADMITS TO METH USE 2 DAYS AGO. Source of Information: Patient Exam Limitations: No Limitations History of Present Illness Date Seen by Provider: Feb 23, 2023 Time Seen by Provider: 16:53 Initial Comments Patient is a 27-year-old female who presents the ED by PO for mental health screening. Patient with a history of schizophrenia, bipolar, PTSD, anxiety. Patient states she is wanting medication adjustments for her schizophrenia. She states that things are not working. She reports outburst at home screaming out loud and throwing things. She states she is hearing voices talking. These voices are not telling her to hurt herself or anyone else. Denies of any visual hallucinations. She states she did relapse with meth use 2 days ago. 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 Inpatient hospitalization in August to [facility]. She is wanting inpatient therapy. History of hep C not currently on medication. She reports some mild diarrhea but denies chest pain, shortness of breath, cough, headache, dizziness, visual changes, Reynaldo pain or dysuria, hematuria. Not concern for . Denies of any other alcohol or drug use. She denies of any suicidal or homicidal thoughts. Patient takes Risperdal, gabapentin, Ativan Allergies and Home Medications Allergies Coded Allergies: Fish Containing Products (Verified Allergy, Unknown, 05/27/22) Penicillins (Unverified Allergy, Unknown, 09/11/13) ciprofloxacin (Unverified Allergy, Unknown, 07/18/14) ciprofloxacin HCl (Unverified Allergy, Unknown, 07/18/14) Patient Home Medication List Home Medication List Reviewed: Yes Acyclovir (Acyclovir) 400 Mg Tablet, 400 MG PO BID Prescribed by: OLIVIA STAFFORD on 05/05/162222 Acyclovir (Acyclovir) 400 Mg Tablet, 800 MG PO BID Prescribed by: OLIVIA STAFFORD on 05/05/162222 Clindamycin HCl (Clindamycin HCl) 300 Mg Capsule, 300 MG PO QID Prescribed by: OMID FLORES on 12/17/22 1502 Hydrocodone/Acetaminophen (Hydrocodone-Acetamin 5-325 mg) 5 Mg-325 Mg Tablet, 1 TAB PO Q4H PRN for PAIN-MODERATE (5-7) Prescribed by: OMID FLORES on 03/21/22 1218 Hydrocodone/Acetaminophen (Hydrocodone-Acetamin 5-325 mg) 5 Mg-325 Mg Tablet, 1 TAB PO Q4H PRN for PAIN-MODERATE (5-7) Prescribed by: OMID FLORES on 12/17/22 1503 Nitrofurantoin/Nitrofuran Mac (Macrobid Capsule) 100 Mg Capsule, 100 MG PO BID Prescribed by: MARCUS FARFAN on 07/18/14 222 Ondansetron (Ondansetron Odt) 4 Mg Tab.rapdis, 4 MG SL Q4H PRN for NAUSEA/VOMITING Prescribed by: OMID FLORES on 12/17/22 1515 Vit/Fe Fumarate/Fa ( Vitamin Tablet) 1 Each Tablet, 1 EACH PO DAILY, (Reported) Entered as Reported by: MARCUS FARFAN on 07/18/14 222 Risperidone (Risperdal) 1 Mg Tablet, 1 MG PO BID Prescribed by: ALLIE GRANDE on 02/23/22 1343 Review of Systems Review of Systems Constitutional: No chills, No diaphoresis EENTM: No ear pain, No blurred vision, No double vision Respiratory: No cough, No dyspnea on exertion Cardiovascular: No chest pain Gastrointestinal: No abdominal pain, No diarrhea, No nausea, No vomiting Genitourinary: No decreased output, No discharge Musculoskeletal: No back pain, No joint pain Skin: No change in color, No change in hair/nails Psychiatric/Neurological: Other (Auditory hallucinations) All Other Systems Reviewed Negative Unless Noted: Yes Past Jbrgllj-[id number]-Msmabd Hx Patient Social History Tobacco Use?: No Use of E-Cig and/or Vaping dev: Yes Substance use?: Yes Substance type: Methamphetamine Alcohol Use?: No Pt feels they are or have been: No Immunizations Up To Date Tetanus Booster (TDap): Unknown First/Initial COVID19 Vaccinat: UNLNOWN DATE Second COVID19 Vaccination Jacob: UNLNOWN DATE Third COVID19 Vaccination Date: UNLNOWN DATE Seasonal Allergies Seasonal Allergies: No Past Medical History Surgery/Hospitalization HX: PMH: SCHIZOPHRENIA Surgeries: Yes Appendectomy, Section, Gallbladder Respiratory: No Cardiac: No Neurological: No Reproductive Disorders: No Gastrointestinal: Yes Gastroesophageal Reflux, Hiatal Hernia Musculoskeletal: No Endocrine: No Cancer: No Psychosocial: Yes Anxiety, Depression Integumentary: No Blood Disorders: No Adverse Reaction/Blood Tranf: No Family Medical History History of drug abuse 03 MOTHER No Pertinent Family Hx Physical Exam Vital Signs Vital Signs - First Documented 02/23/23 16:21 Temp 36.9 Pulse 73 Resp 18 B/P (MAP) 132/75 (94) Pulse Ox 98 O2 Delivery Room Air Capillary Refill : Less Than 3 Seconds Height, Weight, BMI Height: 5'1" Weight: 150lbs. oz. [id number]; 35.00 BMI Method:Stated General Appearance: No Apparent Distress, WD/WN Eyes: Bilateral Eye Normal Inspection, Bilateral Eye PERRL, Bilateral Eye EOMI HEENT: PERRL/EOMI, TMs Normal, Normal ENT Inspection, Pharynx Normal Neck: Full Range of Motion, Normal Inspection, Non Tender, Supple Respiratory: Chest Non Tender, Lungs Clear, Normal Breath Sounds, No Accessory Muscle Use, No Respiratory Distress Cardiovascular: Regular Rate, Rhythm, No Edema, No Gallop, No JVD, No Murmur Gastrointestinal: Normal Bowel Sounds, No Organomegaly, No Pulsatile Mass, Non Tender Back: Normal Inspection, No CVA Tenderness Extremity: Normal Capillary Refill, Normal Inspection, Normal Range of Motion, Non Tender Neurologic/Psychiatric: Alert, Oriented x3, No Motor/Sensory Deficits, 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 II- 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 Norm as Tested, Other (no Suicidal or homicidal thoughts) Skin: Normal Color, Warm/Dry Progress/Results/Core Measures Suspected Sepsis SIRS Temperature: Pulse: 73 Respiratory Rate: 18 Laboratory Tests 02/23/23 16:35: White Blood Count 9.9 Blood Pressure 132 /75 Mean: 94 Laboratory Tests 02/23/23 16:35: Creatinine 0.79, Platelet Count 290, Total Bilirubin 0.5 Results/Orders Lab Results Laboratory Tests Test 02/23/23 16:27 02/23/23 16:35 Range/Units Urine Color ORANGE Urine Clarity CLEAR Urine pH 6.5 5-9 Urine Specific [place] 1.025 H 1.016-1.022 Urine Protein TRACE H NEGATIVE Urine Glucose (UA) NEGATIVE NEGATIVE Urine Ketones NEGATIVE NEGATIVE Urine Nitrite NEGATIVE NEGATIVE Urine Bilirubin NEGATIVE NEGATIVE Urine Urobilinogen 2.0 < = 1.0 MG/DL Urine Leukocyte Esterase NEGATIVE NEGATIVE Urine RBC (Auto) 3+ H NEGATIVE Urine RBC 25-50 H /HPF Urine WBC RARE /HPF Urine Squamous Epithelial Cells 25-50 H /HPF Urine Crystals PRESENT H /LPF Urine Amorphous Sediment RARE CHACE URATES H /LPF Urine Bacteria TRACE /HPF Urine Casts NONE /LPF Urine Mucus SMALL H /LPF Urine Culture Indicated NO Urine Test NEGATIVE NEGATIVE Urine Opiates Screen NEGATIVE NEGATIVE Urine Oxycodone Screen NEGATIVE NEGATIVE Urine Methadone Screen NEGATIVE NEGATIVE Urine Propoxyphene Screen NEGATIVE NEGATIVE Urine Barbiturates Screen NEGATIVE NEGATIVE Ur Tricyclic Antidepressants Screen NEGATIVE NEGATIVE Urine Phencyclidine Screen NEGATIVE NEGATIVE Urine Amphetamines Screen POSITIVE H NEGATIVE Urine Methamphetamines Screen POSITIVE H NEGATIVE Urine Benzodiazepines Screen NEGATIVE NEGATIVE Urine Cocaine Screen NEGATIVE NEGATIVE Urine Cannabinoids Screen NEGATIVE NEGATIVE Influenza Type A (RT-PCR) Not Detected Not Detecte Influenza Type B (RT-PCR) Not Detected Not Detecte SARS-CoV-2 RNA (RT-PCR) Not Detected Not Detecte White Blood Count 9.9 4.3-11.0 10^3/uL Red Blood Count 4.49 3.80-5.11 10^6/uL Hemoglobin 13.6 11.5-16.0 g/dL Hematocrit 39 35-52 % Mean Corpuscular Volume 87 80-99 fL Mean Corpuscular Hemoglobin 30 25-34 pg Mean Corpuscular Hemoglobin Concent 35 32-36 g/dL Red Cell Distribution Width 13.5 10.0-14.5 % Platelet Count 290 130-400 10^3/uL Mean Platelet Volume 10.4 9.0-12.2 fL Immature Granulocyte % (Auto) 0 % Neutrophils (%) (Auto) 56 42-75 % Lymphocytes (%) (Auto) 33 12-44 % Monocytes (%) (Auto) 7 0-12 % Eosinophils (%) (Auto) 3 0-10 % Basophils (%) (Auto) 1 0-10 % Neutrophils # (Auto) 5.6 1.8-7.8 10^3/uL Lymphocytes # (Auto) 3.2 1.0-4.0 10^3/uL Monocytes # (Auto) 0.7 0.0-1.0 10^3/uL Eosinophils # (Auto) 0.3 0.0-0.3 10^3/uL Basophils # (Auto) 0.1 0.0-0.1 10^3/uL Immature Granulocyte # (Auto) 0.0 0.0-0.1 10^3/uL Sodium Level 140 135-145 MMOL/L Potassium Level 3.5 L 3.6-5.0 MMOL/L Chloride Level 109 H 98-107 MMOL/L Carbon Dioxide Level 21 21-32 MMOL/L Anion Gap 10 5-14 MMOL/L Blood Urea Nitrogen 13 7-18 MG/DL Creatinine 0.79 0.60-1.30 MG/DL Estimat Glomerular Filtration Rate 104 BUN/Creatinine Ratio 16 Glucose Level 93 70-105 MG/DL Calcium Level 9.2 8.5-10.1 MG/DL Corrected Calcium 9.2 8.5-10.1 MG/DL Total Bilirubin 0.5 0.1-1.0 MG/DL Aspartate Amino Transf (AST/SGOT) 16 5-34 U/L Alanine Aminotransferase (ALT/SGPT) 14 0-55 U/L Alkaline Phosphatase 79 40-136 U/L Total Protein 6.9 6.4-8.2 GM/DL Albumin 4.0 3.2-4.5 GM/DL Salicylates Level < 5.0 L 5.0-20.0 MG/DL Acetaminophen Level < 10 L 10-30 UG/ML Serum Alcohol < 10 <10 MG/DL My Orders Orders - ALLIE VALENTIN Ua Culture If Indicated (02/23/23 16:44) Cbc With Automated Diff (02/23/23 16:44) Comprehensive Metabolic Panel (02/23/23 16:44) Alcohol (02/23/23 16:44) Drug Screen Stat (Urine) (02/23/23 16:44) Acetaminophen (02/23/23 16:44) Salicylate (02/23/23 16:44) Hcg,Qualitative Urine (02/23/23 16:44) Monitor-Rhythm Ecg Trace Only (02/23/23 16:44) Covid 19 Inhouse Test (02/23/23 17:04) Influenza A And B By Pcr (02/23/23 17:04) General/Regular (02/23/23 Dinner) Vital Signs/I&O 02/23/23 16:21 Temp 36.9 Pulse 73 Resp 18 B/P (MAP) 132/75 (94) Pulse Ox 98 O2 Delivery Room Air Capillary Refill : Less Than 3 Seconds Blood Pressure Mean: 94 ECG Comment Sinus bradycardia with sinus arrhythmia, 56 bpm, QRS duration 93 MS, QTc 424 MS Departure Communication (PCP) Reviewed previous ER visits, H&P, lab testing. Differential diagnosis of hallucinations, psychosis. History of schizophrenia. She reports auditory hallucinations. Denies suicidal or homicidal thoughts. Requesting behavioral health assessment and wanting outpatient resources. Patient is cooperative. No evidence of active psychosis. She reports recent relapse of methamphetamine use. History of hep C not currently being treated. Psych work-up was performed. EKG showed sinus bradycardia with sinus arrhythmia. CBC, CMP grossly unremarkable. Urinalysis negative for infection. Negative for . Positive for methamphetamine use. Lab work otherwise unremarkable medically cleared. Before attempting behavioral health assessment patient states she was requesting to leave. She does have a therapist. She was requesting outpatient resources at this time. She states she is feeling much better and will return if any symptoms worsen. She is just wanting medication changes and we will wait for outpatient follow-up this next week. She feels stable to go home. No active psychosis. She is cooperative. Return precaution were discussed such as worsening symptoms. Denies of any suicidal or homicidal thoughts. Impression Primary Impression: Hallucinations Disposition: HOME, SELF-CARE Condition: Stable Departure-Patient Inst. Decision time for Depature: 19:01 Referrals: SELF,ROBYN SAHU (PCP/Family) Primary Care Physician Patient Instructions: OUTPT MENTAL HEALTH SERVICES ALLIE VALENTIN Feb 23, 2023 16:56
[2023-02-23 16:57] LABS: BACTERIA,URINE TRACE /HPF; RBC,URINE 25-50 /HPF; SQUAMOUS EPITHELIAL CELL,UR 25-50 /HPF; WBC,URINE RARE /HPF
[2023-02-23 16:58] LABS: AMORPHOUS SEDIMENT,UR RARE AMOR URATES /LPF
[2023-02-23 17:02] LABS: CHLORIDE 109 MMOL/L (98-107); POTASSIUM 3.5 MMOL/L (3.6-5.0); SODIUM 140 MMOL/L (135-145)
[2023-02-23 17:03] LABS: CALCIUM 9.2 MG/DL (8.5-10.1)
[2023-02-23 17:05] LABS: GLUCOSE 93 MG/DL (70-105); TOTAL PROTEIN 6.9 GM/DL (6.4-8.2)
[2023-02-23 17:05] LABS: AMPHETAMINE SCREEN, URINE POSITIVE (NEGATIVE); BARBITURATE SCREEN URINE NEGATIVE (NEGATIVE); BENZODIAZEPINES SCREEN URINE NEGATIVE (NEGATIVE); CANNABINOID SCREEN, URINE NEGATIVE (NEGATIVE); COCAINE SCREEN URINE NEGATIVE (NEGATIVE); METHADONE STAT NEGATIVE (NEGATIVE); OPIATE SCREEN URINE NEGATIVE (NEGATIVE); OXYCODONE STAT NEGATIVE (NEGATIVE); PROPOXYPHENE STAT NEGATIVE (NEGATIVE); TRICYCLIC ANTIDEPRESSANTS SCRE NEGATIVE (NEGATIVE)
[2023-02-23 17:06] LABS: CARBON DIOXIDE 21 MMOL/L (21-32)
[2023-02-23 17:07] LABS: BILIRUBIN,TOTAL 0.5 MG/DL (0.1-1.0)
[2023-02-23 17:08] LABS: ALKALINE PHOSPHATASE 79 U/L (40-136); CREATININE SERUM 0.79 MG/DL (0.60-1.30); GFR ESTIMATED 104
[2023-02-23 17:10] LABS: BUN/CREATININE RATIO 16
[2023-02-23 17:11] LABS: SALICYLATE < 5.0 MG/DL (5.0-20.0)
[2023-02-23 17:12] LABS: ALANINE AMINOTRANSFERASE 14 U/L (0-55)
[2023-02-23 17:32] LABS: ACETAMINOPHEN < 10 UG/ML (10-30)
[2023-02-23 19:03] VITALS: BP 127/84
== END 2023-02-23 19:07 | disposition home or self-care (01) ==
LOC: EDUNIT# 16:10 → ER 16:11
DX: F20.9 Schizophrenia, unspecified (principal); I49.8 Other specified cardiac arrhythmias; Z79.899 Other long term (current) drug therapy; Z20.822 Contact with and (suspected) exposure to COVID-19
CPT/HCPCS: 80053; 80306; 81000; 84703; 85025; 87636; 99283; G0480 ×3; 36415; 80320; 80329; 93005

== ENCOUNTER 2023-02-26 10:39 | Emergency (ER) | payer SELFPAY ==
[~2023-02-26] VITALS: Ht 154 cm; Wt 83.9 kg
--- NOTE | 2023-02-26 10:56 | ED Psychosocial ---
General Stated Complaint: MEDICAL SCREENING Source: patient, other (mental health screen report) Exam Limitations: no limitations History of Present Illness Date Seen by Provider: Feb 26, 2023 Time Seen by Provider: 10:40 Initial Comments 27yoF with PMH of schizophrenia, bipolar, PTSD, anxiety coming in for medical clearance. The patient states she has been hallucinating more. The voices do not always make sense to her. They do not tell her to hurt herself. Not actively hearing the voices right now, but was hearing them just prior to arrival. She states that she has not used meth within the past several days. Denying any pain anywhere or any physical concerns at this time. Allergies and Home Medications Allergies Coded Allergies: Fish Containing Products (Verified Allergy, Unknown, 05/27/22) Penicillins (Unverified Allergy, Unknown, 09/11/13) ciprofloxacin (Unverified Allergy, Unknown, 07/18/14) ciprofloxacin HCl (Unverified Allergy, Unknown, 07/18/14) haloperidol (Verified Allergy, Unknown, 02/26/23) Patient Home Medication List Home Medication List Reviewed: Yes Acyclovir (Acyclovir) 400 Mg Tablet, 400 MG PO BID Prescribed by: OLIVIA STAFFORD on 05/05/162222 Acyclovir (Acyclovir) 400 Mg Tablet, 800 MG PO BID Prescribed by: OLIVIA STAFFORD on 05/05/162222 Clindamycin HCl (Clindamycin HCl) 300 Mg Capsule, 300 MG PO QID Prescribed by: OMID FLORES on 12/17/22 1502 Hydrocodone/Acetaminophen (Hydrocodone-Acetamin 5-325 mg) 5 Mg-325 Mg Tablet, 1 TAB PO Q4H PRN for PAIN-MODERATE (5-7) Prescribed by: OMID FLORES on 03/21/22 1218 Hydrocodone/Acetaminophen (Hydrocodone-Acetamin 5-325 mg) 5 Mg-325 Mg Tablet, 1 TAB PO Q4H PRN for PAIN-MODERATE (5-7) Prescribed by: OMID FLORES on 12/17/22 1503 Nitrofurantoin/Nitrofuran Mac (Macrobid Capsule) 100 Mg Capsule, 100 MG PO BID Prescribed by: MARCUS FARFAN on 07/18/14 2221 Ondansetron (Ondansetron Odt) 4 Mg Tab.rapdis, 4 MG SL Q4H PRN for NAUSEA/VOMITING Prescribed by: OMID FLORES on 12/17/22 1515 Vit/Fe Fumarate/Fa ( Vitamin Tablet) 1 Each Tablet, 1 EACH PO DAILY, (Reported) Entered as Reported by: MARCUS FARFAN on 07/18/14 2220 Risperidone (Risperdal) 1 Mg Tablet, 1 MG PO BID Prescribed by: ALLIE GRANDE on 02/23/22 1343 Review of Systems Constitutional: No fever EENTM: no symptoms reported Respiratory: no symptoms reported Cardiovascular: no symptoms reported Gastrointestinal: no symptoms reported Genitourinary: no symptoms reported Musculoskeletal: no symptoms reported Skin: no symptoms reported Psychiatric/Neurological: See HPI Past Rxjygaq-Ggwidk-Rrgtrj Hx Patient Social History Substance use?: Yes Immunizations Up To Date Tetanus Booster (TDap): Unknown First/Initial COVID19 Vaccinat: UNLNOWN DATE Second COVID19 Vaccination Jacob: UNLNOWN DATE Third COVID19 Vaccination Date: UNLNOWN DATE Seasonal Allergies Seasonal Allergies: No Past Medical History Surgery/Hospitalization HX: PMH: SCHIZOPHRENIA Surgeries: Yes Appendectomy, Section, Gallbladder Respiratory: No Cardiac: No Neurological: No Reproductive Disorders: No Gastrointestinal: Yes Gastroesophageal Reflux, Hiatal Hernia Musculoskeletal: No Endocrine: No Cancer: No Psychosocial: Yes Anxiety, Depression Integumentary: No Blood Disorders: No Adverse Reaction/Blood Tranf: No Family Medical History History of drug abuse 03 MOTHER No Pertinent Family Hx Physical Exam Vital Signs - First Documented 02/26/23 10:43 Temp 37.0 Pulse 82 Resp 20 B/P (MAP) 109/70 (83) Pulse Ox 96 O2 Delivery Room Air Capillary Refill : Height, Weight, BMI Height: 5'1" Weight: 150lbs. oz. [id number]; 35.00 BMI Method:Stated General Appearance: WD/WN, no apparent distress HEENT: PERRL/EOMI, normal ENT inspection, pharynx normal Neck: non-tender, full range of motion, supple, normal inspection Respiratory: chest non-tender, lungs clear, normal breath sounds, no respiratory distress, no accessory muscle use Cardiovascular: regular rate, rhythm, no edema, no murmur Gastrointestinal: normal bowel sounds, non tender, soft; No distended, No guarding, No rebound Extremities: normal range of motion, non-tender, normal inspection, no pedal edema, no calf tenderness, normal capillary refill Neurologic/Psychiatric: no motor/sensory deficits, alert, normal mood/affect Appearance/Memory: appropriate appearance, appropriate insight, neat Behavior/Eye Contact: cooperative, good eye contact, normal speech Thoughts/Hallucinations: normal thought pattern, no apparent hallucination Skin: normal color, warm/dry Progress/Results/Core Measures Results/Orders Lab Results Laboratory Tests Test 02/26/23 10:50 02/26/23 11:00 02/26/23 11:11 Range/Units Urine Color YELLOW Urine Clarity CLEAR Urine pH 6.5 5-9 Urine Specific [place] 1.015 L 1.016-1.022 Urine Protein NEGATIVE NEGATIVE Urine Glucose (UA) NEGATIVE NEGATIVE Urine Ketones NEGATIVE NEGATIVE Urine Nitrite NEGATIVE NEGATIVE Urine Bilirubin NEGATIVE NEGATIVE Urine Urobilinogen 0.2 < = 1.0 MG/DL Urine Leukocyte Esterase TRACE H NEGATIVE Urine RBC (Auto) 2+ H NEGATIVE Urine RBC 10-25 H /HPF Urine WBC 0-2 /HPF Urine Squamous Epithelial Cells 5-10 /HPF Urine Crystals NONE /LPF Urine Bacteria MODERATE H /HPF Urine Casts NONE /LPF Urine Mucus NEGATIVE /LPF Urine Culture Indicated YES Urine Opiates Screen NEGATIVE NEGATIVE Urine Oxycodone Screen NEGATIVE NEGATIVE Urine Methadone Screen NEGATIVE NEGATIVE Urine Propoxyphene Screen NEGATIVE NEGATIVE Urine Barbiturates Screen NEGATIVE NEGATIVE Ur Tricyclic Antidepressants Screen NEGATIVE NEGATIVE Urine Phencyclidine Screen NEGATIVE NEGATIVE Urine Amphetamines Screen NEGATIVE NEGATIVE Urine Methamphetamines Screen NEGATIVE NEGATIVE Urine Benzodiazepines Screen NEGATIVE NEGATIVE Urine Cocaine Screen NEGATIVE NEGATIVE Urine Cannabinoids Screen NEGATIVE NEGATIVE SARS-CoV-2 RNA (RT-PCR) Not Detected Not Detecte White Blood Count 8.2 4.3-11.0 10^3/uL Red Blood Count 4.93 3.80-5.11 10^6/uL Hemoglobin 14.8 11.5-16.0 g/dL Hematocrit 42 35-52 % Mean Corpuscular Volume 85 80-99 fL Mean Corpuscular Hemoglobin 30 25-34 pg Mean Corpuscular Hemoglobin Concent 35 32-36 g/dL Red Cell Distribution Width 13.5 10.0-14.5 % Platelet Count 299 130-400 10^3/uL Mean Platelet Volume 10.3 9.0-12.2 fL Immature Granulocyte % (Auto) 0 % Neutrophils (%) (Auto) 71 42-75 % Lymphocytes (%) (Auto) 22 12-44 % Monocytes (%) (Auto) 6 0-12 % Eosinophils (%) (Auto) 0 0-10 % Basophils (%) (Auto) 1 0-10 % Neutrophils # (Auto) 5.9 1.8-7.8 10^3/uL Lymphocytes # (Auto) 1.8 1.0-4.0 10^3/uL Monocytes # (Auto) 0.5 0.0-1.0 10^3/uL Eosinophils # (Auto) 0.0 0.0-0.3 10^3/uL Basophils # (Auto) 0.0 0.0-0.1 10^3/uL Immature Granulocyte # (Auto) 0.0 0.0-0.1 10^3/uL Sodium Level 138 135-145 MMOL/L Potassium Level 3.8 3.6-5.0 MMOL/L Chloride Level 106 98-107 MMOL/L Carbon Dioxide Level 24 21-32 MMOL/L Anion Gap 8 5-14 MMOL/L Blood Urea Nitrogen 11 7-18 MG/DL Creatinine 0.89 0.60-1.30 MG/DL Estimat Glomerular Filtration Rate 91 BUN/Creatinine Ratio 12 Glucose Level 98 70-105 MG/DL Calcium Level 9.9 8.5-10.1 MG/DL Corrected Calcium 9.5 8.5-10.1 MG/DL Total Bilirubin 0.5 0.1-1.0 MG/DL Aspartate Amino Transf (AST/SGOT) 15 5-34 U/L Alanine Aminotransferase (ALT/SGPT) 16 0-55 U/L Alkaline Phosphatase 72 40-136 U/L Total Protein 7.8 6.4-8.2 GM/DL Albumin 4.5 3.2-4.5 GM/DL Salicylates Level < 5.0 L 5.0-20.0 MG/DL Acetaminophen Level < 10 L 10-30 UG/ML Serum Alcohol < 10 <10 MG/DL My Orders Orders - ALLIE GRANDE MD Ua Culture If Indicated (02/26/23 10:49) Cbc With Automated Diff (02/26/23 10:49) Comprehensive Metabolic Panel (02/26/23 10:49) Alcohol (02/26/23 10:49) Drug Screen Stat (Urine) (02/26/23 10:49) Acetaminophen (02/26/23 10:49) Salicylate (02/26/23 10:49) Ekg Tracing (02/26/23 10:49) Monitor-Rhythm Ecg Trace Only (02/26/23 10:49) Urine Bedside (02/26/23 10:49) Covid 19 Inhouse Test (02/26/23 10:49) Urine Culture (02/26/23 10:50) Olanzapine Orally Dissolve Tab (Zyprexa (02/26/23 11:45) General/Regular (02/26/23 Lunch) Medications Given in ED Current Medications Medications Dose Ordered Sig/Rohan Route Start Time Stop Time Status Last Admin Dose Admin Olanzapine 10 mg ONCE ONCE PO 02/26/23 11:45 02/26/23 11:46 DC 02/26/23 12:32 10 MG Vital Signs/I&O 02/26/23 10:43 Temp 37.0 Pulse 82 Resp 20 B/P (MAP) 109/70 (83) Pulse Ox 96 O2 Delivery Room Air Progress Progress Note : Progress Note 27-year-old female with above history coming in due to needing medical screening. We read the mental health screen reports, and reportedly they have sent this to [place] for referral. On the screen, the patient was apparently actively hallucinating and attending to external stimuli. Currently does not appear to be hallucinating on exam, and she is denying to me at this moment. She is also denying any current suicidal or homicidal ideation. She states she mostly wants to get her medications adjusted. From an emergency department standpoint, she has no physical complaints, and is cleared for mental health evaluation. Basic labs obtained per psych protocol, and COVID screening obtained as well. Hemoglobin, creatinine, electrolytes all unremarkable. Urine test negative. EKG ordered and interpreted by me showing no acute ischemic changes or concerns otherwise. On reassessment, the patient was later attending to stimuli, not being aggressive, offered her Zyprexa for the hallucinations which she took. Patient was accepted for transfer to [facility] by Dr. Shirley. Initial ECG Impression Date: Feb 26, 2023 Initial ECG Impression Time: 11:22 Initial ECG Rate: 66 Initial ECG Rhythm: Normal Sinus Comment Narrow QRS, normal axis, no significant ST changes or T wave abnormalities, there is some baseline wander, QTc 399 Departure Impression Primary Impression: Hallucinations Additional Impression: Schizophrenia Qualified Codes: F20.3 - Undifferentiated schizophrenia Disposition: 65 XFER TO PSYCH HOSP/UNIT Condition: Stable Transfer Transfer Reason: Exceeds level of care (needs psych facility) Transfer Facility: [facility] Method of Transfer: Departure-Patient Inst. Referrals: SELF,ROBYN SAHU (PCP/Family) Primary Care Physician ALLIE GRANDE MD Feb 26, 2023 10:56
[2023-02-26 10:59] LABS: BILIRUBIN,URINE NEGATIVE (NEGATIVE); CLARITY,URINE CLEAR; COLOR,URINE YELLOW; GLUCOSE, URINE (UA) NEGATIVE (NEGATIVE); KETONES,URINE NEGATIVE (NEGATIVE); LEUKOCYTE ESTERASE ,URINE TRACE (NEGATIVE); NITRITE,URINE NEGATIVE (NEGATIVE); PH,URINE 6.5 (5-9); PROTEIN,URINE NEGATIVE (NEGATIVE)
[2023-02-26 11:11] LABS: AMPHETAMINE SCREEN, URINE NEGATIVE (NEGATIVE); BARBITURATE SCREEN URINE NEGATIVE (NEGATIVE); BENZODIAZEPINES SCREEN URINE NEGATIVE (NEGATIVE); CANNABINOID SCREEN, URINE NEGATIVE (NEGATIVE); COCAINE SCREEN URINE NEGATIVE (NEGATIVE); METHADONE STAT NEGATIVE (NEGATIVE); OPIATE SCREEN URINE NEGATIVE (NEGATIVE); OXYCODONE STAT NEGATIVE (NEGATIVE); PROPOXYPHENE STAT NEGATIVE (NEGATIVE); TRICYCLIC ANTIDEPRESSANTS SCRE NEGATIVE (NEGATIVE)
[2023-02-26 11:16] LABS: BACTERIA,URINE MODERATE /HPF; WBC,URINE 0-2 /HPF
[2023-02-26 11:17] LABS: BASOPHILS % (AUTO) 1 % (0-10); EOSINOPHILS % (AUTO) 0 % (0-10); HEMATOCRIT 42 % (35-52); HEMOGLOBIN 14.8 g/dL (11.5-16.0); LYMPHOCYTES # (AUTO) 1.8 10^3/uL (1.0-4.0); LYMPHOCYTES % (AUTO) 22 % (12-44); MEAN CORPUSCULAR HEMOGLOBIN 30 pg (25-34); MEAN CORPUSCULAR HGB CONC 35 g/dL (32-36); MEAN CORPUSCULAR VOLUME 85 fL (80-99); MEAN PLATELET VOLUME 10.3 fL (9.0-12.2); MONOCYTES # (AUTO) 0.5 10^3/uL (0.0-1.0); MONOCYTES % (AUTO) 6 % (0-12); NEUTROPHILS # (AUTO) 5.9 10^3/uL (1.8-7.8); NEUTROPHILS % (AUTO) 71 % (42-75); PLATELET COUNT 299 10^3/uL (130-400); WHITE BLOOD COUNT 8.2 10^3/uL (4.3-11.0)
[2023-02-26] MEDS ORDERED: OLANZapine 5 MG ODT (ZyPREXA ZYDIS) PO ONE (11:45)
[2023-02-26 11:46] LABS: ALBUMIN 4.5 GM/DL (3.2-4.5); ALKALINE PHOSPHATASE 72 U/L (40-136); BILIRUBIN,TOTAL 0.5 MG/DL (0.1-1.0); BUN/CREATININE RATIO 12; CALCIUM 9.9 MG/DL (8.5-10.1); CARBON DIOXIDE 24 MMOL/L (21-32); CHLORIDE 106 MMOL/L (98-107); CREATININE SERUM 0.89 MG/DL (0.60-1.30); GFR ESTIMATED 91; GLUCOSE 98 MG/DL (70-105); POTASSIUM 3.8 MMOL/L (3.6-5.0); SALICYLATE < 5.0 MG/DL (5.0-20.0); SODIUM 138 MMOL/L (135-145); TOTAL PROTEIN 7.8 GM/DL (6.4-8.2)
[2023-02-26 11:57] LABS: ACETAMINOPHEN < 10 UG/ML (10-30)
[2023-02-26 12:09] LABS: ALANINE AMINOTRANSFERASE 16 U/L (0-55)
[2023-02-26 16:17] VITALS: BP 106/65
== END 2023-02-26 16:17 ==
LOC: EDUNIT# 10:39 → ER 10:40
DX: F20.9 Schizophrenia, unspecified (principal); Z20.822 Contact with and (suspected) exposure to COVID-19
CPT/HCPCS: 80053; 80306; 81000; 84703; 85025; 87088; 87636; 93005; 99283; G0480 ×3; 36415; 80320; 80329

== ENCOUNTER 2023-08-09 18:30 | Emergency (ER) | payer SELFPAY ==
[~2023-08-09] VITALS: Ht 154 cm; Wt 81.0 kg
--- NOTE | 2023-08-09 18:41 | ED Psychosocial ---
General Stated Complaint: PSYCH SCREEN Source: patient, old records History of Present Illness Date Seen by Provider: Aug 09, 2023 Time Seen by Provider: 18:32 Initial Comments PT ARRIVES VIA POV--SENT HERE BY [facility] FOR MEDICAL CLEARANCE PT HAS ALREADY HAD A MENTAL HEALTH SCREEN BY JANELLE GUILLAUME WITH [facility], AND ARE ATTEMPTING TO GET PLACEMENT AT [facility]. SHE WILL BE FAXING HER PAPERWORK SHORTLY PT WITH LONGSTANDING SUBSTANCE ABUSE --ESPECIALLY METHAMPHETAMINES AND THC, AND MENTAL HEALTH ISSUES. BEING BROUGHT IN DUE TO PSYCHOSIS AND HALLUCINATIONS, PER CALL FROM MENTAL HEALTH PROVIDER PRIOR TO PT'S ARRIVAL PT DENIES SUICIDAL OR HOMICIDAL THOUGHTS, OR ATTEMPTS AT THIS TIME. PT STATES SHE ALWAYS HAS ONGOING SUICIDAL THOUGHTS--OVERDOSING OR HANGING HERSELF--STATES THEY ARE "VERY VERY QUICK THOUGHTS AND IT LEAVES SOON IT ENTERS". SHE IS NOT CURRENTLY HAVING ANY OF THESE THOUGHTS PT IS VOLUNTARY AT THIS TIME AND IS SEEKING INPATIENT MENTAL HEALTH CARE. PT STATES SHE LIVES WITH HER GRANDMOTHER, AND GRANDMOTHER TOOK HER TO SEE MENTAL HEALTH TODAY, BECAUSE "I WAS BREAKING THINGS AND SCREAMING" PT GETS INVEGA SHOTS--LAST ONE WAS 1 WEEK AGO SHE HAS NOT FILLED HER ATIVAN FOR AT LEAST A MONTH--SHE STATES NO MONEY FOR PRESCRIPTION. PT STATES SHE LAST SMOKED METH 2 DAYS AGO. PT SMOKED UP TO 1 1/2 PPD, STILL SMOKES SOMETIMES, SHE VAPES NICOTINE DAILY. SHE DENIES ETOH USE LMP--END OF JUNE, NORMAL. NO CONTROL P[place] [facility] [place] Home Medications Allergies Coded Allergies: Fish Containing Products (Verified Allergy, Unknown, 05/27/22) Penicillins (Unverified Allergy, Unknown, 09/11/13) ciprofloxacin (Unverified Allergy, Unknown, 07/18/14) ciprofloxacin HCl (Unverified Allergy, Unknown, 07/18/14) haloperidol (Verified Allergy, Unknown, 02/26/23) Patient Home Medication List Home Medication List Reviewed: Yes Discontinued Medications Acyclovir (Acyclovir) 400 Mg Tablet, 400 MG PO BID Discontinued Reason: No Longer Taking Prescribed by: OLIVIA STAFFORD on 05/05/162222 Last Action: Discontinued Acyclovir (Acyclovir) 400 Mg Tablet, 800 MG PO BID Discontinued Reason: No Longer Taking Prescribed by: OLIVIA STAFFORD on 05/05/162222 Last Action: Discontinued Clindamycin HCl (Clindamycin HCl) 300 Mg Capsule, 300 MG PO QID Discontinued Reason: No Longer Taking Prescribed by: OMID FLORES on 12/17/22 1502 Last Action: Discontinued Hydrocodone/Acetaminophen (Hydrocodone-Acetamin 5-325 mg) 5 Mg-325 Mg Tablet, 1 TAB PO Q4H PRN for PAIN-MODERATE (5-7) Discontinued Reason: No Longer Taking Prescribed by: OMID FLORES on 03/21/22 1218 Last Action: Discontinued Hydrocodone/Acetaminophen (Hydrocodone-Acetamin 5-325 mg) 5 Mg-325 Mg Tablet, 1 TAB PO Q4H PRN for PAIN-MODERATE (5-7) Discontinued Reason: No Longer Taking Prescribed by: OMID FLORES on 12/17/22 1503 Last Action: Discontinued Nitrofurantoin/Nitrofuran Mac (Macrobid Capsule) 100 Mg Capsule, 100 MG PO BID Discontinued Reason: No Longer Taking Prescribed by: MARCUS FARFAN on 07/18/142220 Last Action: Discontinued Ondansetron (Ondansetron Odt) 4 Mg Tab.rapdis, 4 MG SL Q4H PRN for NAUSEA/VOMITING Discontinued Reason: No Longer Taking Prescribed by: OMID FLORES on 12/17/22 1515 Last Action: Discontinued Vit/Fe Fumarate/Fa ( Vitamin Tablet) 1 Each Tablet, 1 EACH PO DAILY, (Reported) Discontinued Reason: No Longer Taking Entered as Reported by: MARCUS FARFAN on 07/18/142219 Last Action: Discontinued Risperidone (Risperdal) 1 Mg Tablet, 1 MG PO BID Discontinued Reason: No Longer Taking Prescribed by: ALLIE GRANDE on 02/23/22 1343 Last Action: Discontinued Review of Systems Constitutional: no symptoms reported EENTM: no symptoms reported Respiratory: no symptoms reported Cardiovascular: no symptoms reported Gastrointestinal: no symptoms reported Genitourinary: no symptoms reported : No Control/STD Prophylaxis: None Musculoskeletal: no symptoms reported Skin: no symptoms reported Psychiatric/Neurological: See HPI Past Reqqezw-Wjlelm-Goyrle Hx Patient Social History Tobacco Use?: Yes Tobacco type used: Cigarettes Smoking Status: Current Everyday Smoker Use of E-Cig and/or Vaping dev: Yes E-Cig or Vaping type used: Nicotine Use of E-Cig and/or Vaping Jeronimo: Current Everyday User Substance use?: Yes Substance type: Amphetamines, Methamphetamine, Marijuana Substance frequency: Daily Alcohol Use?: No Immunizations Up To Date Tetanus Booster (TDap): Unknown First/Initial COVID19 Vaccinat: RECEIVED, UNK WHEN Second COVID19 Vaccination Jacob: UNLNOWN DATE Third COVID19 Vaccination Date: UNLNOWN DATE Seasonal Allergies Seasonal Allergies: No Past Medical History Surgery/Hospitalization HX: PMH: SCHIZOPHRENIA Surgeries: Yes Appendectomy, Section, Gallbladder Respiratory: No Cardiac: No Neurological: No : No Reproductive Disorders: No Genitourinary: No Gastrointestinal: Yes (S/P ELLYN AND APPY) Gastroesophageal Reflux, Hiatal Hernia, Gall Bladder Disease Musculoskeletal: No Endocrine: No HEENT: No Cancer: No Psychosocial: Yes (POLYSUBSTANCE ABUSE; MULTIPLE PSYCH ADMITS; ) Anxiety, Suicide Attempts, Schizophrenia, Depression Integumentary: No Blood Disorders: No Adverse Reaction/Blood Tranf: No Family Medical History History of drug abuse 03 MOTHER No Pertinent Family Hx Physical Exam Vital Signs - First Documented 08/09/23 18:35 Temp 36.2 Pulse 97 Resp 16 B/P (MAP) 124/65 (84) Pulse Ox 98 O2 Delivery Room Air Capillary Refill : Height, Weight, BMI Height: 5'1" Weight: 150lbs. oz. 68.199128mx; 35.00 BMI Method:Stated General Appearance: WD/WN, no apparent distress HEENT: PERRL/EOMI, other (POOR DENTITION) Neck: normal inspection Respiratory: normal breath sounds, no respiratory distress, no accessory muscle use Cardiovascular: regular rate, rhythm, no murmur Gastrointestinal: non tender, soft Extremities: normal inspection, normal capillary refill Neurologic/Psychiatric: team guide II-XII nml as tested, no motor/sensory deficits, alert, normal mood/affect, oriented x 3, other (PT IS CALM AND COOPERATIVE AT THIS TIME. ) Appearance/Memory: no memory impairment Behavior/Eye Contact: cooperative, good eye contact, normal speech Thoughts/Hallucinations: normal thought pattern, no apparent hallucination Skin: normal color, warm/dry, tattoos/piercings, other (NO EXTERNAL EVIDENCE OF TRAUMA) Progress/Results/Core Measures Results/Orders Lab Results Laboratory Tests Test 08/09/23 18:55 08/09/23 19:22 Range/Units White Blood Count 7.9 4.3-11.0 10^3/uL Red Blood Count 4.75 3.80-5.11 10^6/uL Hemoglobin 14.0 11.5-16.0 g/dL Hematocrit 41 35-52 % Mean Corpuscular Volume 87 80-99 fL Mean Corpuscular Hemoglobin 30 25-34 pg Mean Corpuscular Hemoglobin Concent 34 32-36 g/dL Red Cell Distribution Width 12.8 10.0-14.5 % Platelet Count 250 130-400 10^3/uL Mean Platelet Volume 10.4 9.0-12.2 fL Immature Granulocyte % (Auto) 0 % Neutrophils (%) (Auto) 51 42-75 % Lymphocytes (%) (Auto) 39 12-44 % Monocytes (%) (Auto) 9 0-12 % Eosinophils (%) (Auto) 2 0-10 % Basophils (%) (Auto) 1 0-10 % Neutrophils # (Auto) 4.0 1.8-7.8 10^3/uL Lymphocytes # (Auto) 3.0 1.0-4.0 10^3/uL Monocytes # (Auto) 0.7 0.0-1.0 10^3/uL Eosinophils # (Auto) 0.1 0.0-0.3 10^3/uL Basophils # (Auto) 0.0 0.0-0.1 10^3/uL Immature Granulocyte # (Auto) 0.0 0.0-0.1 10^3/uL Sodium Level 138 135-145 MMOL/L Potassium Level 3.4 L 3.6-5.0 MMOL/L Chloride Level 107 98-107 MMOL/L Carbon Dioxide Level 22 21-32 MMOL/L Anion Gap 9 5-14 MMOL/L Blood Urea Nitrogen 10 7-18 MG/DL Creatinine 0.76 0.60-1.30 MG/DL Estimat Glomerular Filtration Rate 109 BUN/Creatinine Ratio 13 Glucose Level 99 70-105 MG/DL Calcium Level 9.4 8.5-10.1 MG/DL Corrected Calcium 9.2 8.5-10.1 MG/DL Total Bilirubin 0.7 0.1-1.0 MG/DL Aspartate Amino Transf (AST/SGOT) 11 5-34 U/L Alanine Aminotransferase (ALT/SGPT) 7 0-55 U/L Alkaline Phosphatase 65 40-136 U/L Total Protein 7.5 6.4-8.2 GM/DL Albumin 4.3 3.2-4.5 GM/DL Serum Test, Qualitative NEGATIVE NEGATIVE Salicylates Level < 5.0 L 5.0-20.0 MG/DL Acetaminophen Level < 10 L 10-30 UG/ML Serum Alcohol < 10 <10 MG/DL Influenza Type A (RT-PCR) Not Detected Not Detecte Influenza Type B (RT-PCR) Not Detected Not Detecte SARS-CoV-2 RNA (RT-PCR) Not Detected Not Detecte Urine Color ORANGE Urine Clarity CLEAR Urine pH 6.0 5-9 Urine Specific [place] >=1.030 1.016-1.022 Urine Protein 1+ H NEGATIVE Urine Glucose (UA) NEGATIVE NEGATIVE Urine Ketones 1+ H NEGATIVE Urine Nitrite NEGATIVE NEGATIVE Urine Bilirubin 1+ H NEGATIVE Urine Urobilinogen 0.2 < = 1.0 MG/DL Urine Leukocyte Esterase NEGATIVE NEGATIVE Urine RBC (Auto) NEGATIVE NEGATIVE Urine RBC NONE /HPF Urine WBC NONE /HPF Urine Squamous Epithelial Cells 10-25 H /HPF Urine Crystals NONE /LPF Urine Bacteria FEW H /HPF Urine Casts NONE /LPF Urine Mucus LARGE H /LPF Urine Culture Indicated NO Urine Opiates Screen NEGATIVE NEGATIVE Urine Oxycodone Screen NEGATIVE NEGATIVE Urine Methadone Screen NEGATIVE NEGATIVE Urine Barbiturates Screen NEGATIVE NEGATIVE Ur Tricyclic Antidepressants Screen NEGATIVE NEGATIVE Urine Phencyclidine Screen NEGATIVE NEGATIVE Urine Amphetamines Screen POSITIVE H NEGATIVE Urine Methamphetamines Screen POSITIVE H NEGATIVE Urine Benzodiazepines Screen NEGATIVE NEGATIVE Urine Cocaine Screen NEGATIVE NEGATIVE Urine Cannabinoids Screen NEGATIVE NEGATIVE My Orders Orders - BRAD DEL CID DO Phytonadione () Inj (Phytonadion (08/09/23 18:45) Erythromycin Ophth Oint (Erythromycin Op (08/09/23 18:45) Ekg Tracing (08/09/23 18:32) Acetaminophen (08/09/23 18:32) Alcohol (08/09/23 18:32) Cbc And Automated Diff (08/09/23 18:32) Comprehensive Metabolic Panel (08/09/23 18:32) Drug Screen Stat (Urine) (08/09/23 18:32) Hcg,Qualitative Serum (08/09/23 18:32) Salicylate (08/09/23 18:32) Ua Culture If Indicated (08/09/23 18:32) Covid 19 Inhouse Test (08/09/23 18:32) Influenza A And B By Pcr (08/09/23 18:32) General/Regular (08/09/23 Dinner) Vital Signs/I&O 08/10/23 08:47 Pulse 79 Resp 16 B/P (MAP) 89/45 Pulse Ox 97 O2 Delivery Room Air Progress Progress Note : Progress Note SUICIDE RISK STRATIFICATION PAPERWORK COMPLETED VITALS ON ARRIVAL: TEMP 36.2=97.2, HR 97, RR 16, BP 124/65, O2 SAT 98% ON ROOM AIR LABS: -CBC NORMAL -CMP WITH K 3.4, OTHERWISE NORMAL -TSH NORMAL -UA CLEAR -ACETAMINOPHEN NEGATIVE -SALICYLATES NEGATIVE -ETOH NEGATIVE -UDS + AMPHETAMINES/METHAMPHETAMINES -COVID/FLU NEGATIVE -HCG NEGATIVE EKG IS UNREMARKABLE PT C/O BEING VERY HUNGRY--HAS NOT EATEN ALL DAY TODAY, MEAL TRAY ORDERED. 1954--PT HAS BEEN CLEARED MEDICALLY. RN CONTACTING [facility] / JANELLE GUILLAUME. PT IS CALM, COOPERATIVE AND RESTING AT THIS TIME 0030--PT IS SLEEPING SOUNDLY. PLACEMENT IS STILL PENDING AT THIS TIME. RN HAS BEEN IN CONTACT WITH JANELLE GUILLAUME SEVERAL TIMES TONIGHT. PT HAS NOT HAD ANY AGGRESSIVE BEHAVIOR AT ANY TIME DURING ER STAY 012--RN HAS BEEN ON PHONE WITH [facility], THEY HAVE BEDS, WILL FAX PT'S INFORMATION TO THEM. RN HAD CONTACTED [facility], AND THEY DO NOT HAVE ANY BEDS AT THIS TIME. 214--PT HAS BEEN ACCEPTED BY DR. Ruby VÁZQUEZ AT [facility]. THEY WILL CALL BACK WITH BED ASSIGNMENT. PT IS SLEEPING AT THIS TIME. SHE HAS NOT HAD ANY AGGRESSIVE BEHAVIOR AT ANY TIME DURING ER STAY. SHE HAS BEEN CALM AND COOPERATIVE THROUGHOUT ER STAY. Initial ECG Impression Date: Aug 09, 2023 Initial ECG Impression Time: 19:13 Initial ECG Rate: 65 Initial ECG Rhythm: Normal Sinus Initial ECG Intervals: Normal Initial ECG Impression: Normal Initial ECG Comparisson: Unchanged Comment INTERPRETED BY ME Departure Communication (Admissions) 214--SPOKE WITH DR. NICK VÁZQUEZ, [facility], ACCEPTS PT FOR TRANSFER. FACILITY WILL CALL BACK WITH BED ASSIGNMENT Impression Primary Impression: Passive suicidal ideations Additional Impressions: Behavior disorder Methamphetamine use Disposition: 65 XFER TO PSYCH HOSP/UNIT Condition: Stable Transfer Transfer Reason: Exceeds level of care (INPATIENT PSYCHIATRIC CARE UNAVAILABLE HERE) Transfer Facility: [facility] Method of Transfer: Private Vehicle ([employer]) Departure-Patient Inst. Referrals: NO,LOCAL PHYSICIAN (PCP/Family) Primary Care Physician BRAD DEL CID DO Aug 09, 2023 18:41
[2023-08-09] MEDS ORDERED: ERYTHROMYCIN OPHTH OINT 1 GM (SINGLE USE) TUBE OU ONE (18:45)
[2023-08-09] MEDS ORDERED: PHYTONADIONE Neonatal (VIT. K) 1 MG/0.5 ML AMP IM ONE (18:45)
[2023-08-09 19:04] LABS: BASOPHILS % (AUTO) 1 % (0-10); EOSINOPHILS # (AUTO) 0.1 10^3/uL (0.0-0.3); EOSINOPHILS % (AUTO) 2 % (0-10); HEMATOCRIT 41 % (35-52); LYMPHOCYTES % (AUTO) 39 % (12-44); MEAN CORPUSCULAR HEMOGLOBIN 30 pg (25-34); MEAN CORPUSCULAR HGB CONC 34 g/dL (32-36); MEAN CORPUSCULAR VOLUME 87 fL (80-99); MEAN PLATELET VOLUME 10.4 fL (9.0-12.2); MONOCYTES # (AUTO) 0.7 10^3/uL (0.0-1.0); MONOCYTES % (AUTO) 9 % (0-12); NEUTROPHILS % (AUTO) 51 % (42-75); PLATELET COUNT 250 10^3/uL (130-400); WHITE BLOOD COUNT 7.9 10^3/uL (4.3-11.0)
[2023-08-09 19:13] LABS: ALBUMIN 4.3 GM/DL (3.2-4.5); CHLORIDE 107 MMOL/L (98-107); POTASSIUM 3.4 MMOL/L (3.6-5.0); SODIUM 138 MMOL/L (135-145)
[2023-08-09 19:14] LABS: CALCIUM 9.4 MG/DL (8.5-10.1)
[2023-08-09 19:16] LABS: GLUCOSE 99 MG/DL (70-105); TOTAL PROTEIN 7.5 GM/DL (6.4-8.2)
[2023-08-09 19:17] LABS: BILIRUBIN,TOTAL 0.7 MG/DL (0.1-1.0); CARBON DIOXIDE 22 MMOL/L (21-32)
[2023-08-09 19:19] LABS: ALKALINE PHOSPHATASE 65 U/L (40-136); CREATININE SERUM 0.76 MG/DL (0.60-1.30); GFR ESTIMATED 109
[2023-08-09 19:21] LABS: ACETAMINOPHEN < 10 UG/ML (10-30); BUN/CREATININE RATIO 13
[2023-08-09 19:22] LABS: ALANINE AMINOTRANSFERASE 7 U/L (0-55); SALICYLATE < 5.0 MG/DL (5.0-20.0)
[2023-08-09 19:49] LABS: AMPHETAMINE SCREEN, URINE POSITIVE (NEGATIVE); BACTERIA,URINE FEW /HPF; BARBITURATE SCREEN URINE NEGATIVE (NEGATIVE); BILIRUBIN,URINE 1+ (NEGATIVE); CANNABINOID SCREEN, URINE NEGATIVE (NEGATIVE); CLARITY,URINE CLEAR; COCAINE SCREEN URINE NEGATIVE (NEGATIVE); COLOR,URINE ORANGE; GLUCOSE, URINE (UA) NEGATIVE (NEGATIVE); KETONES,URINE 1+ (NEGATIVE); LEUKOCYTE ESTERASE ,URINE NEGATIVE (NEGATIVE); METHADONE STAT NEGATIVE (NEGATIVE); NITRITE,URINE NEGATIVE (NEGATIVE); OPIATE SCREEN URINE NEGATIVE (NEGATIVE); OXYCODONE STAT NEGATIVE (NEGATIVE); PROTEIN,URINE 1+ (NEGATIVE); TRICYCLIC ANTIDEPRESSANTS SCRE NEGATIVE (NEGATIVE)
[2023-08-10 08:47] VITALS: BP 89/45
== END 2023-08-10 08:47 ==
LOC: EDUNIT# 18:30 → ER 18:32
DX: F91.9 Conduct disorder, unspecified (principal); F15.90 Other stimulant use, unspecified, uncomplicated; F17.210 Nicotine dependence, cigarettes, uncomplicated; F17.290 Nicotine dependence, other tobacco product, uncomplicated
CPT/HCPCS: 80053; 80306; 81000; 84703; 85025; 87636; 93005; 99283; G0480 ×3; 36415; 80320; 80329